=== PATIENT | male | born 1940 | race Caucasian/White ===

== ENCOUNTER 2017-04-02 08:55 | Emergency (ER) | payer MEDICARE ==
[2017-04-02 10:42] LABS: Hematocrit 31.8 % (42.0-52.0); Mean Platelet Volume 10.4 fL (7.4-10.4); Red Blood Cell (RBC) Count 3.38 mill/uL (4.70-6.10); White Blood Cell (WBC) Count 2.8 thou/uL (4.8-10.8)
[2017-04-02 10:51] LABS: ALT (SGPT) 10 U/L (8-55); AST (SGOT) 23 U/L (5-34); Alkaline Phosphatase 61 U/L (40-150); Anion Gap 13 mmol/L (10-20); BUN (Urea Nitrogen) 16 mg/dL (8.4-25.7); Bilirubin, Total 0.3 mg/dL (0.2-1.2); Calc. Creatinine Clearance 0 mL/min (70-130); Calcium 9.6 mg/dL (7.8-10.44); Carbon Dioxide 22 mmol/L (23-31); Chloride 105 mmol/L (98-107); Estimated GFR-MDRD 65; Globulin 2.1 g/dL (2.4-3.5); Protein, Total 5.4 g/dL (5.8-8.1)
--- NOTE | 2017-04-02 11:06 | CT ---
NONCONTRAST HEAD CT: HISTORY: Altered mental status. Symptoms x2 days. Lymphoma. COMPARISON: Pre and post contrast head CT from 03/02/2017. TECHNIQUE: A noncontrast head CT was performed in the axial plane. FINDINGS: Adequate aeration of the sinuses and mastoid air cells. Cavernous carotid atherosclerosis is noted. The calvarium is intact. No parenchymal hemorrhage. No extraaxial hematoma. No midline shift. Basilar cisterns are patent. Age appropriate brain volume. Cortical dumont white matter differential is preserved. Ventricles a nd sulci are patent and symmetric. Note is made of a hypodensity in the posterior fossa, unchanged. IMPRESSION: No acute intracranial process. No significant interval change. Given the patient's symptomatology and past medical history, better interrogation with MRI is recommended, presuming there are no contr aindications. POS: [facility]
[2017-04-02 12:32] LABS: Band 15 % (5-11); Elliptocytes SLIGHT = 2-5 cells (100X) (0-1/hpf); Neutrophil 43 % (42-75); Reactive Lymphocytes 1 % (0-10); Tear Drops SLIGHT = 2-5 cells (100X) (0-1/hpf)
== END 2017-04-02 12:48 | disposition home or self-care (01) ==
LOC: SCSER 08:55
DX: K03.2 Erosion of teeth (principal); K04.7 Periapical abscess without sinus; K05.10 Chronic gingivitis, plaque induced; D72.819 Decreased white blood cell count, unspecified; C85.90 Non-Hodgkin lymphoma, unspecified, unspecified site; K21.9 Gastro-esophageal reflux disease without esophagitis; F41.9 Anxiety disorder, unspecified; F32.9 Major depressive disorder, single episode, unspecified; I10 Essential (primary) hypertension; Z87.891 Personal history of nicotine dependence
CPT/HCPCS: 70450; 80053; 83605; 85025; 87040; 87077; 87149; 87186

== ENCOUNTER 2017-04-06 15:29 | Inpatient (IN) | payer MEDICARE ==
[2017-04-06 17:33] LABS: Hematocrit 33.1 % (42.0-52.0); Mean Platelet Volume 8.4 fL (7.4-10.4); Red Blood Cell (RBC) Count 3.39 mill/uL (4.70-6.10); White Blood Cell (WBC) Count 2.5 thou/uL (4.8-10.8)
[2017-04-06 17:41] LABS: ALT (SGPT) 9 U/L (8-55); AST (SGOT) 19 U/L (5-34); Alkaline Phosphatase 62 U/L (40-150); Anion Gap 12 mmol/L (10-20); BUN (Urea Nitrogen) 18 mg/dL (8.4-25.7); Bilirubin, Total 0.4 mg/dL (0.2-1.2); Calc. Creatinine Clearance 0 mL/min (70-130); Calcium 10.3 mg/dL (7.8-10.44); Carbon Dioxide 27 mmol/L (23-31); Chloride 102 mmol/L (98-107); Estimated GFR-MDRD 52; Globulin 2.5 g/dL (2.4-3.5); Protein, Total 6.3 g/dL (5.8-8.1)
[2017-04-06 17:51] LABS: Band 14 % (5-11); Metamyelocyte 2 % (0-0); Neutrophil 34 % (42-75); Ovalocytes SLIGHT = 2-5 cells (100X) (0-1/hpf); Polychromasia SLIGHT = 2-3 cells (100X) (0-2/hpf); Reactive Lymphocytes 15 % (0-10)
[2017-04-06] MEDS ORDERED: Ondansetron ODT 4 MG TAB SL PRN (21:44)
[2017-04-06] MEDS ORDERED: Ondansetron HCl/PF 4 MG/2 ML Vial IVP PRN (21:44)
[2017-04-06] MEDS ORDERED: Acetaminophen 325 MG TAB PO PRN (21:44)
[2017-04-07] MEDS: Sodium Chloride 0.9% 1,000 ML IV SCH ×2 (00:30→00:55)
[2017-04-07] MEDS: Clindamycin/D5W 600 MG in Premix Bag 1 BAG IVPB SCH ×2 (00:30→05:19)
[2017-04-07] MEDS ORDERED: GLYCERIN EA EYE PRN (07:52)
[2017-04-07] MEDS ORDERED: PEG EA EYE PRN (07:52)
[2017-04-07] MEDS ORDERED: HYPROMELLOSE EA EYE PRN (07:52)
[2017-04-07] MEDS ORDERED: Artificial Tears 18 DROP/0.9 ML EA EYE PRN (08:19)
--- NOTE | 2017-04-07 08:20 | HP ---
CHIEF COMPLAINT: Weakness, failure to thrive, recent dental infection. HISTORY OF PRESENT ILLNESS: This is a 76-year-old gentleman with a history of mantle cell lymphoma, followed by Oncology, currently on chemotherapy, who presents to the emergency department with wors ening weakness and failure to thrive. The patient was recently diagnosed with a dental abscess. He was seen here in the emergency department on 04/02/2017 for increased confusion. He was found to h ave an infection in his mouth. He was started on p.o. clindamycin and outpatient arrangement with a dentist was made, but he has not been able to see them yet. The patient continued to worsen as far as his ability to function at home. He was having increased weakness and inability to get around a t home and presented back to the emergency department. He is now being admitted for IV antibiotics and further evaluation. Of note, from that emergency department visit on 04/02/2017 blood cultures were done which have been growing Staph epidermidis 2 out of 2 blood cultures were positive. PAST MEDICAL HISTORY: Mantle cell lymphoma with chemo and radiation, coronary artery disease, gastr oesophageal reflux disease, anxiety, blindness, hypertension, chronic pain, hyperlipidemia, chronic anemia. PAST SURGICAL HISTORY: Four-vessel coronary bypass graft, right shoulder surgery, porcine cardiac a ortic valve replacement. MEDICATIONS: Xanax 0.25 mg b.i.d. p.r.n., aspirin 81 mg daily, Imdur 30 mg daily, melatonin 3 mg at bedtime, metoprolol 25 mg b.i.d., Protonix 40 mg b.i.d., sertraline 25 mg daily, Ambien 5 mg p.r.n. sleep, Tramadol 50 mg q.8 h. p.r.n. pain. ALLERGIES: No known drug allergies. SOCIAL HISTORY: The patient has 2 children, he is from [place], but recently moved to [place] to be closer to family. No smoking, no alcohol. REVIEW OF SYSTEMS: As per the history of present illness. GENERAL: He denies any recent fevers. Positive for weakness. HEENT: Positive for blindness, no recent congestion. CARDIAC: No current chest pain, shortness of breath or palpitations. PULMONARY: Denies cough or hemoptysis. GASTROINTESTINAL: Denies nausea, vomiting, abdominal pain, melena or hematochezia. GENITOURINARY: Denies dysuria or hematuria. NEUROLOGIC: Positive weakness. PSYCHIATRIC: History of anxiety and depression. PHYSICAL EXAMINATION: VITAL SIGNS: Temperature 98.6, pulse 74 and regular, respirations 18, blood pressure 162/89, pulse ox of 98% on room air. GENERAL: He is awake and alert, in no acute distress. He appears well, complaining about needing s omeone to feed him. Mucosa is moist. NECK: Supple. HEART: Regular rate and rhythm with a 3/6 systolic ejection murmur. LUNGS: Clear bilaterally. ABDOMEN: Soft, nontender, nondistended. No hepatosplenomegaly. EXTREMITIES: No clubbing, cyanosis or edema. 2+ peripheral pulses bilaterally. LABORATORY DATA: White blood cell count 2.5, hemoglobin and hematocrit 10.8 and 33.1, platelets of 144. He does have a left shift with 14% bands, 34% neutrophils, 11% lymphocytes. Sodium 137, potas sium 4.2, chloride 102, C02 27, BUN and creatinine 18 and 1.34 with a GFR of 52. Liver enzymes were normal. Brain CT from 04/02/2017 revealed no acute process. ASSESSMENT AND PLAN: 1. This is a 76-year-old gentleman with mantle cell lymphoma, currently receiving chemotherapy, fol lowed by Dr. Irving. Now with oral abscess with bacteremia Staph epidermidis. Plan; agree with samara ontinuing IV clindamycin as he is clinically improving, consider evaluation from Dr. Velasquez if he wor sens. 2. Mantle cell lymphoma with neurologic involvement. We will notify Oncology of the patient's admi ssion and further recommendations per them. 3. History of gastrointestinal bleed. Continue to hold Eliquis. 4. Coronary artery disease, stable. Continue aspirin. 5. Hypertension. Continue antihypertensives and monitor closely. 6. Valvular heart disease. We will consider a transesophageal echocardiogram if his symptoms decli ne and he develops further fever.
[2017-04-07] MEDS: Famotidine 20 MG TAB PO SCH ×2 (08:54→20:51)
[2017-04-07] MEDS: Aspirin 81 mg Enteric Coated Tablet PO SCH (08:54)
[2017-04-07] MEDS ORDERED: FLU VACC TS2017-18 (>65YR) 0.5 ML SYRINGE IM ONE (09:00)
[2017-04-07] MEDS: traMADol HCl 50 MG TAB PO PRN (12:49)
[2017-04-07] MEDS: Melatonin 3 MG TAB PO PRN (20:51)
[2017-04-07] MEDS: Atorvastatin Calcium 20 MG TAB PO SCH (20:51)
[2017-04-08 06:18] LABS: ALT (SGPT) 9 U/L (8-55); AST (SGOT) 17 U/L (5-34); Alkaline Phosphatase 58 U/L (40-150); Anion Gap 10 mmol/L (10-20); BUN (Urea Nitrogen) 11 mg/dL (8.4-25.7); Bilirubin, Total 0.6 mg/dL (0.2-1.2); Calc. Creatinine Clearance 56 mL/min (70-130); Calcium 10.4 mg/dL (7.8-10.44); Carbon Dioxide 26 mmol/L (23-31); Chloride 104 mmol/L (98-107); Estimated GFR-MDRD 74; Globulin 2.4 g/dL (2.4-3.5); Protein, Total 6.3 g/dL (5.8-8.1)
[2017-04-08 06:58] LABS: Band 12 % (5-11); Hematocrit 35.6 % (42.0-52.0); Mean Platelet Volume 8.3 fL (7.4-10.4); Metamyelocyte 1 % (0-0); Neutrophil 40 % (42-75); Reactive Lymphocytes 2 % (0-10); Red Blood Cell (RBC) Count 3.68 mill/uL (4.70-6.10); White Blood Cell (WBC) Count 2.2 thou/uL (4.8-10.8)
[2017-04-08] MEDS: Famotidine 20 MG TAB PO SCH ×2 (07:45→21:25)
[2017-04-08] MEDS: Aspirin 81 mg Enteric Coated Tablet PO SCH (07:45)
[2017-04-08] MEDS ORDERED: cloNIDine 0.1 MG TAB PO PRN (07:47)
--- NOTE | 2017-04-08 08:08 | PRG ---
DATE OF SERVICE: 04/08/2017 SUBJECTIVE: The patient continues to improve. He was up ambulating in his room with assistance. Zain hays states that he is feeling more like his baseline and not as confused. He denies any tooth p ain. Denies chest pain, shortness of breath or palpitations. No fevers or chills. Blood pressure has been elevated. OBJECTIVE: VITAL SIGNS: Temperature 97.7, T-max of 98.8, pulse of 61, respirations 16, pulse ox is 99%, blood pressure 177/83. GENERAL: He is awake and alert, in no acute distress. Speech is clear. NECK: Supple. HEENT: Mucosa is moist. HEART: Regular rate and rhythm with a 3/6 systolic ejection murmur. LUNGS: Clear bilaterally. ABDOMEN: Soft. EXTREMITIES: With no edema. No calf tenderness. LABORATORY DATA: Sodium 136, potassium 3.7, chloride 104, CO2 26, BUN and creatinine 11 and 0.98. Serum glucose of 89. Liver enzymes are normal. White blood cell count 2.2, hemoglobin and hematocr it 11.8 and 35.6, platelets of 140. He continues to have a bandemia with 12% bands. ASSESSMENT AND PLAN: 1. This is a 76-year-old gentleman with a history of mantle cell lymphoma on chemotherapy, now with Staph epidermidis bacteremia, possibly secondary to oral abscess. We will continue IV clindamycin. Await Dr. Velasquez's evaluation for duration of antibiotics, possibly needing a PICC line if long-ter m. 2. Mantle cell lymphoma with neurologic involvement. Oncology to make any further recommendations. 3. Coronary artery disease is stable. 4. Valvular heart disease. We will check a transthoracic echocardiogram to evaluate the status of his valve. DISPOSITION: We will obtain a walking consult and will consult rehab for possible short term placem ent as he is home alone for a time.
[2017-04-08] MEDS: Atorvastatin Calcium 20 MG TAB PO SCH (21:25)
[2017-04-08] MEDS: Melatonin 3 MG TAB PO PRN (21:26)
[2017-04-08] MEDS: ALPRAZolam 0.25 MG TAB PO PRN (21:26)
--- NOTE | 2017-04-08 22:33 | CON ---
DATE OF CONSULTATION: 04/08/2017 REASON FOR CONSULTATION: Mantle cell lymphoma. HISTORY OF PRESENT ILLNESS: Mr. 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 He presented to the emergency ro with weakness and failure to thrive. He was recently diagnosed with a dental abscess and has bee n on oral clindamycin. He was admitted for IV antibiotics and further evaluation. The patient was diagnosed with mantle cell lymphoma in 2011. He had massive splenomegaly, intra-abdominal adenopath y and upper GI complaints. He had bone marrow and vomit at the time of diagnosis. He was treated w ith chemotherapy and had a relapse in 2015. He then was treated with the same regimen and was in [facility] until 09/2016 when he presented with headaches and abrupt loss of vision. He was found to h ave [employer] involvement. He had a retro-orbital mass. He was treated with intrathecal chemotherapy and radiation to the retro-orbital mass. Imbruvica was initiated in January. He is doing well with thi s regimen, tolerated it well. He had no neutropenia or significant side effects. The patient has h ad chronic headaches, dizziness and episodes of confusion, which preceded Imbruvica. Imaging in ly February showed no evidence of lymphoma. While in the hospital, the patient has been given IV a ntibiotics and Dr. Velasquez has been asked to see the patient. PAST MEDICAL HISTORY: 1. Mantle cell lymphoma with [employer] involvement. 2. Coronary artery disease. 3. Atrial fibrillation. 4. Renal insufficiency. PAST SURGICAL HISTORY: 1. Coronary artery bypass grafting. 2. Transesophageal echo. 3. Aortic valve replacement. 4. Rotator cuff repair. 5. EGD. ALLERGIES: No known drug allergies. HOME MEDICATIONS: 1. Xanax 0.25 mg p.o. t.i.d. 2. Aspirin 81 mg daily. 3. Lipitor 20 mg daily. 4. Pepcid 20 mg b.i.d. 5. Imbruvica 140 mg 4 tablets daily. 6. Imdur 30 mg daily. 7. Toprol XL 20 mg b.i.d. 8. Protonix 40 mg daily. 9. Zoloft 25 mg daily. 10. Tizanidine 4 mg b.i.d. p.r.n. 11. Tramadol p.r.n. FAMILY HISTORY: His daughter had pancreatic cancer. Mother had hypertension. SOCIAL HISTORY: , has 2 children. He moved to [place] to be close to his child. REVIEW OF SYSTEMS: A 12 point review of systems is negative except for weakness and headaches. PHYSICAL EXAMINATION: VITAL SIGNS: Temperature is 98.0, pulse is 72, respiratory rate 20, blood pressure is 177/83, he is 97% on room air. GENERAL: Well-developed, well-nourished male in no acute distress. HEENT: Normocephalic and atraumatic. The patient is blind. There are no oral lesions. NECK: Supple. CARDIOVASCULAR: Regular rate and rhythm. LUNGS: Clear. ABDOMEN: Soft and nontender. Bowel sounds are positive. EXTREMITIES: No clubbing, cyanosis or edema. SKIN: No rash. HEMATOLOGIC: No petechia or purpura. NEUROLOGICAL: Nonfocal. LYMPH: There is no palpable adenopathy. PERTINENT LABORATORY DATA: Current WBCs are 2.2, hemoglobin 11.8, hematocrit 35.6, platelet count 1 40,000, 40% neutrophils, 12% bands, and 26 % lymphocytes. Sodium is 136, potassium 3.7, chloride 10 4, CO2 of 26, BUN is 11 and creatinine 0.98. Calcium is 10.4, total bilirubin is 0.6, AST is 17, AL T is 9 and alkaline phosphatase is 58. Serum total protein is 6.3, albumin 3.9 and globulin 2.4. ASSESSMENT AND PLAN: 1. Failure to thrive. 2. Mantle cell lymphoma on Ibrance. 3. Possible dental abscess. DISCUSSION: The patient has continue to do well with Ibrance with minimal side effects. His mantle cell has been in remission. We would continue the same dose of 560 mg daily and follow up with Dr. Irving in May. We will follow his hospital course remotely.
[2017-04-09 06:29] LABS: ALT (SGPT) 7 U/L (8-55); AST (SGOT) 16 U/L (5-34); Alkaline Phosphatase 58 U/L (40-150); Anion Gap 11 mmol/L (10-20); BUN (Urea Nitrogen) 14 mg/dL (8.4-25.7); Bilirubin, Total 0.7 mg/dL (0.2-1.2); Calc. Creatinine Clearance 46 mL/min (70-130); Calcium 11.2 mg/dL (7.8-10.44); Carbon Dioxide 29 mmol/L (23-31); Chloride 104 mmol/L (98-107); Estimated GFR-MDRD 59; Globulin 2.5 g/dL (2.4-3.5); Protein, Total 6.6 g/dL (5.8-8.1)
[2017-04-09 06:56] LABS: Band 7 % (5-11); Hematocrit 35.9 % (42.0-52.0); Mean Platelet Volume 8.3 fL (7.4-10.4); Neutrophil 32 % (42-75); Red Blood Cell (RBC) Count 3.74 mill/uL (4.70-6.10); White Blood Cell (WBC) Count 2.5 thou/uL (4.8-10.8)
[2017-04-09] MEDS: Famotidine 20 MG TAB PO SCH ×2 (08:28→20:14)
[2017-04-09] MEDS: Aspirin 81 mg Enteric Coated Tablet PO SCH (08:28)
--- NOTE | 2017-04-09 08:29 | PRG ---
DATE OF SERVICE: 04/09/2018 SUBJECTIVE: The patient is improving. He is ambulating with assistance. He feels weak, but contin ues to be confused at times. He denies any acute pain. Denies fevers, chills, nausea, vomiting. D enies chest pain, shortness of breath. OBJECTIVE: VITAL SIGNS: Temperature 97.4, pulse is 70, respirations 16, blood pressure 139/70, pulse ox 97% on room air. GENERAL: He is awake and alert. Speech is clear. He mumbles at times and appears to be confused t his morning. HEENT: Mucosa is moist. NECK: Supple. HEART: Regular rate and rhythm with a 3/6 systolic ejection murmur. LUNGS: Clear. ABDOMEN: Soft. EXTREMITIES: With no edema, no calf tenderness. LABORATORY DATA: White blood cell count 2.5, hemoglobin and hematocrit 11.7 and 35.9, bandemia down to 7%. Sodium 140, potassium 3.7, chloride 104, CO2 29, BUN and creatinine 14 and 1.2, serum gluco se of 90, calcium was elevated at 11.2. Again, blood cultures positive for Staph epidermidis x2, se nsitive to clindamycin. Echocardiogram revealed moderate aortic stenosis, prosthetic aortic valve in place. No vegetations seen on transthoracic echocardiogram. ASSESSMENT AND PLAN: 1. This is a 76-year-old gentleman with a history of stage IV mantle cell lymphoma on Imbruvica, no w with Staph epidermidis bacteremia, possibly secondary to an oral abscess. Continuing IV clindamyc in. Awaiting Dr. Velasquez's evaluation. 2. Placement: Awaiting rehab placement due to failure to thrive, weakness and possible need for lo ng-term IV antibiotics. 3. Coronary artery disease is stable. 4. Valvular heart disease, stable echocardiogram. We will check a ESPERANZA if Dr. Velasquez thinks necessar y. 5. Mantle cell lymphoma. We will continue medications. Appreciate oncology evaluation. 6. Await long-term placement.
[2017-04-09] MEDS: Saccharomyces boulardii 250 MG CAP PO SCH (08:44)
[2017-04-09 09:44] LABS: Prothrombin Time 20.8 SEC (12.0-14.7)
[2017-04-09] MEDS: Clindamycin/D5W 600 MG in Premix Bag 1 BAG IVPB SCH ×2 (11:13→17:09)
--- NOTE | 2017-04-09 11:14 | SPC ---
ULTRASOUND GUIDED LEFT UPPER EXTREMITY PICC LINE PLACEMENT DATE: 04/09/2017 HISTORY: Bacteremia. The patient needs long-term IV antibiotics. FLUOROSCOPY: Total fluoroscopy time is 0.2 minutes with total dose of 760 mGy*cm2. TECHNIQUE: After informed consent was obtained, the patient was placed on the angiography table in the supine p osition. The left upper extremity was meticulously prepped and draped in the usual sterile fashion. An appropriate access site was determined with ultrasound guidance. Skin and subcutaneous tissues were infiltrated with buffered 1% lidocaine for local anesthesia at th e intended puncture site. The left brachial vein was accessed utilizing micropuncture technique and concurrent real-time ultra sound guidance. A 5-Gambian peel-away sheath was placed. The guidewire was advanced into the IVC to confirm placement in the venous system. The catheter was then measured and cut to the appropriate length. Catheter was placed over the guidewire with the tip position overlying the distal SVC. Guidewire an d peel-away sheath were removed. The catheter was accessed and aspirated/flushed easily. The cipriano ter was secured to the skin utilizing a Stat-Lock device. A dry sterile dressing was placed. The p atient tolerated the procedure well without immediate complication. FINDINGS: Technically successful placement of a single-lumen 5-Gambian 40 cm PICC line via the left brachial ve in. Tip of the catheter overlies the distal SVC. Final spot fluoroscopic image of catheter placeme nt is obtained. IMPRESSION: Technically successful left upper extremity PICC line placement. POS: [facility]
[2017-04-09] MEDS: IBRUTINIB 140 MG PO SCH (17:12)
--- NOTE | 2017-04-09 18:42 | CON ---
DATE OF CONSULTATION: 04/09/2017 REASON FOR CONSULTATION: Bacteremia. HISTORY OF PRESENT ILLNESS: A 76-year-old who has a history of mantle cell lymphoma diagnosed and treated for the most part in [place]. The patient had radiation therapy and chemotherapy and has been placed on Imbruvica orally. Reportedly, he had dysfunction or fracture of the port that had been inserted in the right subclavian location in [place] and that has not been used since. The patient had been placed in a usp unit few weeks ago and developed some ulceration and other types of injuries in the scalp and facial area according to his daughter. The patient was transferred over here because of concerns with a management in [place]. Here he has been living with his daughter and developed dental pain that was seen at the emergency room and given a diagnosis of dental abscess plus a prescription for clindamycin and recommendation to visit with the dentist. The visit has been scheduled a few weeks from now, but patient developed weakness and decreased oral intake. The patient was admitted and 2/2 sets of blood cultures yielded Staph epidermides and we were asked to evaluate. The patient is currently awake, in no distress. Denies any headaches. 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 No sore throat, odynophagia, dysphagia. Toothache has improved. No back pain, no cough or sputum production or dyspnea. He has some moderate abdominal pain. No genitourinary symptoms. No diarrhea. No bleeding. No joint symptoms or neurological symptoms. 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 PAST SURGICAL HISTORY: Bypass graft surgery; right shoulder surgery; aortic valve replacement, porcine. CURRENT MEDICATIONS: Xanax, Lipitor, clindamycin, Catapres, Pepcid, Imdur, melatonin, Imbruvica, Florastor, Zoloft and Ultram. ALLERGIES: None. SOCIAL HISTORY: Living with one of his daughters, disabled. Never a smoker. PHYSICAL EXAMINATION: VITAL SIGNS: With a T-max 98.6, blood pressure 119/74, pulse 68, respirations 15, O2 sat 97%. SKIN: Shows the port with no erythema, no areas of skin lesions or other type of breakdown, no petechiae or purpura. No lymphadenopathy. HEENT: Sclerae are white. Pupils are 2 mm, but not reactive. No light perception. Nasal and oral cavity, not remarkable except for marked gum resorption, dental decay, numerous missing teeth. NECK: Supple, no jugular venous distention or carotid bruits. LUNGS: With symmetric clear breath sounds. HEART: S1, S2 with regular rate. No S3, S4. Markedly diminished heart sounds. ABDOMEN: Soft. Not distended or tender. No ascites. No bladder distention. No genital abnormalities. EXTREMITIES: No joint inflammatory activity. Pulses are faintly palpable in dorsalis pedis. NEUROLOGIC: Plantar responses are flexor. No clonus. He is awake. He recognizes his daughter, he is disoriented. LABORATORY DATA: White cell count is 2.5, hemoglobin 11.7, MCV 96, platelet is 148, 32% neutrophils, 7% bands, it was at 14% on arrival, lymphocytes 33%, 25% monocytes. INR 1.7. Chemistry otherwise normal. Creatinine has improved from 1.34 to 1.20 and blood cultures with Staph epidermides 2/2 sets with the first set was drawn at 10:15, the second set is labeled and has been drawn at the same time. ASSESSMENT: 1. History of mantle cell lymphoma of the port, having finished IV chemo and radiation therapy, now on maintenance Imbruvica. 2. General malaise and weakness. 3. Dental abscess, periodontitis. 4. Staph epidermides bacteremia, 2/2 sets. 5. Dysfunction of port. DISCUSSION: Differential diagnosis includes a contamination of the sample versus a true bacteremia, possibly related to device colonization. We will repeat two sets of blood cultures. If they remain negative, then manage as contamination of sample. If they turn positive for the same organism, then consider removal of the port. The port will have to be removed anyways in view of the dysfunction of this device. The presence of a prosthetic valve complicates things a little bit. The echocardiogram did not show any obvious abnormality and transthoracic echos are notoriously not very sensitive in detecting vegetations, particularly in prostatic valves. May have to order a ESPERANZA depending on the results of 2 sets that have been ordered today. I would advise keeping patient in the hospital until we clarify this issue. [facility]
[2017-04-09] MEDS: Melatonin 3 MG TAB PO PRN (20:14)
[2017-04-09] MEDS: Atorvastatin Calcium 20 MG TAB PO SCH (20:14)
[2017-04-10] MEDS: Clindamycin/D5W 600 MG in Premix Bag 1 BAG IVPB SCH ×4 (00:06→17:38)
[2017-04-10 06:09] LABS: Band 8 % (5-11); Hematocrit 35.1 % (42.0-52.0); Mean Platelet Volume 8.9 fL (7.4-10.4); Neutrophil 51 % (42-75); Red Blood Cell (RBC) Count 3.62 mill/uL (4.70-6.10); White Blood Cell (WBC) Count 2.6 thou/uL (4.8-10.8)
[2017-04-10] MEDS: Saccharomyces boulardii 250 MG CAP PO SCH (07:42)
[2017-04-10] MEDS: Aspirin 81 mg Enteric Coated Tablet PO SCH (07:42)
[2017-04-10] MEDS: Famotidine 20 MG TAB PO SCH ×2 (07:43→22:14)
--- NOTE | 2017-04-10 14:49 | PRG ---
DATE OF SERVICE: 04/10/2017 SUBJECTIVE: No events of yesterday were noted. Dr. Velasquez felt like it would be best to repeat bloo d cultures prior to sending him to rehab and the patient's discharge was held. The patient continue s to do well. He is ambulating with a walking program. Daughter states that he continues to feel w eak and confused at times, but much better. He denies pain. Denies fevers, chills, nausea, or vomi ting. Denies chest pain, shortness of breath. He is tolerating antibiotics. OBJECTIVE: VITAL SIGNS: Temperature 96.4, pulse of 74, respirations 16, blood pressure 160/95, pulse ox of 96% on room air. GENERAL: He is awake and alert, in no acute distress. Speech is clear. NECK: Supple. HEART: Regular rate and rhythm. LUNGS: Clear. ABDOMEN: Soft. EXTREMITIES: With no edema. LABORATORY DATA: Blood cultures repeat are pending. White blood cell count 2600, hemoglobin and he matocrit 11.8 and 35.1, and platelets of 137. ASSESSMENT AND PLAN: 1. This is a 76-year-old gentleman with mantle cell lymphoma, now with continuing on Imbruvica, adm itted for weakness, mental status change and positive blood cultures. He is on day #4 of IV clindam ycin for Staphylococcus epidermidis. 2. Bacteremia. We will continue clindamycin at this time. Again, for Staph epidermidis, awaiting repeat blood cultures, possible transesophageal echocardiography and removal of MediPort per Dr. Mil steel. 3. Mantle cell lymphoma. We will continue Imbruvica. 4. Dysfunction of port. I will consult Surgery for port removal if it is okay with Dr. Velasquez.
[2017-04-10] MEDS: IBRUTINIB 140 MG PO SCH (17:39)
[2017-04-10] MEDS: Atorvastatin Calcium 20 MG TAB PO SCH (22:14)
[2017-04-10] MEDS: ALPRAZolam 0.25 MG TAB PO PRN (22:14)
[2017-04-11] MEDS: Clindamycin/D5W 600 MG in Premix Bag 1 BAG IVPB SCH ×5 (00:52→23:34)
[2017-04-11] MEDS: Aspirin 81 mg Enteric Coated Tablet PO SCH (08:10)
[2017-04-11] MEDS: Saccharomyces boulardii 250 MG CAP PO SCH (08:10)
[2017-04-11] MEDS: Famotidine 20 MG TAB PO SCH ×2 (08:10→20:42)
[2017-04-11 11:19] LABS: Hematocrit 34.6 % (42.0-52.0); Mean Platelet Volume 8.7 fL (7.4-10.4); White Blood Cell (WBC) Count 2.3 thou/uL (4.8-10.8)
[2017-04-11 11:28] LABS: Band 15 % (5-11); Neutrophil 30 % (42-75); Ovalocytes SLIGHT = 2-5 cells (100X) (0-1/hpf); Polychromasia SLIGHT = 2-3 cells (100X) (0-2/hpf); Reactive Lymphocytes 5 % (0-10); Tear Drops SLIGHT = 2-5 cells (100X) (0-1/hpf); Toxic Granulation SLIGHT; Vacuoles SLIGHT
--- NOTE | 2017-04-11 12:23 | PRG ---
DATE OF SERVICE: 04/10/2017 SUBJECTIVE: The patient denies pain. He appears to be comfortable. He states that he is walking with assistance. He does state that he feels more weak. Grandson is in the room with him, states that he continues to have more confusion. Today, he is more confused and not sure where he is. Curtis says this has been happening more and more frequently over the past few weeks. He appears to be tolerating the antibiotics. He is moving his bowels. OBJECTIVE: VITAL SIGNS: Temperature 97.6, T-max of 98.2, pulse of 65, respirations 18, blood pressure 143/86 and pulse ox is 99% on room air. GENERAL: He is awake and alert. Speech is clear. He does appear to be confused. He is oriented to person. HEART: Regular rate and rhythm. LUNGS: Clear. Chest wall with no sign of infection. ABDOMEN: Soft. EXTREMITIES: With no edema. LABORATORY DATA: Most recent blood cultures are pending. ASSESSMENT AND PLAN: This is a 76-year-old with mantle cell lymphoma with neurologic involvement, continuing on imbruvica per Oncology. He was admitted for positive blood cultures on day #5 of IV clindamycin for positive blood cultures with Staph epidermidis. 1. Bacteremia. We will continue clindamycin, awaiting for repeat blood cultures. A 48-hour culture will be this afternoon about 1:30. If positive, again I will proceed with a transesophageal echocardiography as well as removal of the port. 2. Mantle cell lymphoma. We will continue imbruvica. 3. Confusion. I will check MRI of the brain and check a UA and CBC as well. MARBELLA
--- NOTE | 2017-04-11 12:55 | MRI ---
BRAIN MRI WITH AND WITHOUT CONTRAST: Date: 04/11/17 COMPARISON: None. HISTORY: Mental status changes, history of lymphoma. TECHNIQUE: Multiplanar, multisequence MR imaging of the brain obtained with and without contrast. FINDINGS: There is a tiny focus of increased signal intensity on the diffusion-weighted sequence within the le ft parietal lobe on image 49, which measures approximately 4.0 mm. There is a focus of increased T2 and FLAIR signal in this region. This is felt to most likely represent T2 shine-through. Punctate ar ea of infarction is much less likely. The diffusion-weighted imaging appears grossly unremarkable ot herwise. There are a few scattered subcentimeter foci of increased T2 and FLAIR signal within the periventric ular, deep, and subcortical white matter bilaterally, suggesting areas of small vessel disease. There are a few opacified mastoid air cells bilaterally, left greater than right. Lobulated T2 hyperintense lesion in posterior fossa noted suggesting an arachnoid cyst. Axial gradient echo imaging demonstrates a subcentimeter focus of blooming artifact in the deep whit e matter of the left frontal lobe suggesting an area of calcification and/or remote microhemorrhage. Arterial flow-voids at axial level of skull base appear unremarkable on T2 weighted imaging. Postcontrast imaging demonstrates no abnormal enhancement within the brain parenchyma. IMPRESSION: Punctate focus of increased signal on the diffusion-weighted sequence within right parietal lobe is favored to represent T2 shine-through as detailed above. No acute findings are appreciated otherwise . POS: [facility]
[2017-04-11] MEDS: IBRUTINIB 140 MG PO SCH (17:42)
[2017-04-11 19:39] LABS: Bilirubin Negative (Negative); Blood, Urine Negative (Negative); Glucose, Urine (Dipstick) Negative (Negative); Ketone, Urine Negative (Negative); Nitrite Negative (Negative); Protein, Urine (Dipstick) Negative (Neg-Trace); Urobilinogen 0.2 mg/dL (0.2-1.0)
[2017-04-11] MEDS: Atorvastatin Calcium 20 MG TAB PO SCH (20:41)
[2017-04-11] MEDS: Melatonin 3 MG TAB PO PRN (20:42)
[2017-04-11] MEDS: traMADol HCl 50 MG TAB PO PRN (20:42)
[2017-04-12] MEDS: Clindamycin/D5W 600 MG in Premix Bag 1 BAG IVPB SCH (05:45)
--- NOTE | 2017-04-12 08:27 | PRG ---
DATE OF SERVICE: 04/12/2017 SUBJECTIVE: The patient continues to feel well. He denies any complaints. He denies chest pain, s hortness of breath. Per nursing he has been transferring well and walking with a walking program. His appetite is good. He has good bowel movements. OBJECTIVE: VITAL SIGNS: Temperature 98.0, pulse of 73, respirations 16, blood pressure 137/84, pulse ox is 98% on room air. GENERAL: He is awake and alert, in no acute distress. Speech is clear. He appears less confused t sanchez, but he is alert and oriented to person and time. He states that he believes that he is in [facility], but of course he just moved to [place] a few months ago. HEENT: Mucosa is moist. NECK: Supple. HEART: Regular rate and rhythm. LUNGS: Clear. ABDOMEN: Soft. EXTREMITIES: With no edema. LABORATORY DATA: Blood cultures are negative over 48 hours. MRI of the brain revealed a small punc law foci consistent with a past micro hemorrhages areas of small vessel disease, but no other acute findings. ASSESSMENT AND PLAN: 1. 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 2. Bacteremia, now resolved after 6 days of IV clindamycin. If okay with Dr. Velasquez we will discon tinue antibiotics, discontinue PICC line and have a MediPort removed by surgery. 3. Mantle cell lymphoma. We will continue Imbruvica. 4. Mental status change, likely delirium, possibly dementia as well. MRI is stable. A UA and CBC were stable as well. 5. Disposition. Depending on Dr. Velasquez's opinion as far as a MediPort removal. We will plan for t juan to a short term rehab before he goes home.
[2017-04-12] MEDS: Aspirin 81 mg Enteric Coated Tablet PO SCH (10:49)
[2017-04-12] MEDS: Saccharomyces boulardii 250 MG CAP PO SCH (10:49)
[2017-04-12] MEDS: Famotidine 20 MG TAB PO SCH ×2 (10:49→20:04)
[2017-04-12] MEDS ORDERED: Lidocaine 1% w/Epinephrine 1:200K 30 ML VIAL FS SCH (14:30)
[2017-04-12] MEDS: IBRUTINIB 140 MG PO SCH (18:57)
[2017-04-12] MEDS: Atorvastatin Calcium 20 MG TAB PO SCH (20:04)
[2017-04-12] MEDS: ALPRAZolam 0.25 MG TAB PO PRN (20:06)
--- NOTE | 2017-04-12 22:26 | OP ---
DATE OF PROCEDURE: 04/12/2017 PREOPERATIVE DIAGNOSIS: Suspected infected right chest wall Port-A-Cath. PREOPERATIVE DIAGNOSES: Suspected infected right chest wall Port-A-Cath. PROCEDURE PERFORMED: Surgical excision of right chest wall Port-A-Cath. INDICATIONS FOR PROCEDURE: This is a 76-year-old man, who had right subclavian Port-A-Cath placed f or chemotherapy approximately 12 years ago. Chemotherapy has since been completed for his treatment . The patient was admitted with Staphylococcus bacteremia. I was asked to remove the Port-A-Cath as a suspected site of infection. DESCRIPTION OF PROCEDURE: Informed consent obtained from the patient's adult daughter. The patient was placed in supine position. The right chest wall including the Port-A-Cath site was sterilely p repped and draped in the usual fashion. The skin overlying the Port-A-Cath was liberally infiltrate d with 1% lidocaine with epinephrine. A transverse incision was made through the previous insertion scar using a 15 scalpel. The incision was carried through subcutaneous tissues by blunt dissection . The Port-A-Cath was grasped with a towel clamp and elevated. Adhering fiberoptic tissues were sh arply taken down using Metzenbaum scissors. The Port-A-Cath and the implanted catheter were explant ed as a unit passed off the operative field to microbiology. The site was inspected for good hemostasis. Deep tissues were approximated using interrupted suture s of 3-0 Vicryl. The skin incision was closed using a running stitch of 4-0 Monocryl suture in subc uticular fashion. Dermabond was applied over the incision. Note that pressure was held out in the catheter site until hemostasis was achieved. The patient jose l erated the procedure without any apparent complications and remains hemodynamically stable following completion of the procedure.
[2017-04-13 07:16] VITALS: BP 146/81; TEMP 98.6
[2017-04-13] MEDS: Aspirin 81 mg Enteric Coated Tablet PO SCH (08:29)
[2017-04-13] MEDS: Saccharomyces boulardii 250 MG CAP PO SCH (08:29)
[2017-04-13] MEDS: Famotidine 20 MG TAB PO SCH (08:29)
--- NOTE | 2017-04-13 08:31 | DIS ---
ADMISSION DIAGNOSES: Weakness, failure to thrive, bacteremia. DISCHARGE DIAGNOSES: Bacteremia, resolved. Mental status change. OTHER DIAGNOSES: Mantle cell lymphoma with neurologic involvement, history of GI bleed, coronary ar veronica disease, hypertension, valvular heart disease. CONSULTATIONS: Dr. Velasquez for Infectious Disease, Dr. Irving for Oncology, Dr. Sherwood for Surgery. PROCEDURES: IV antibiotics. Echocardiogram, brain MRI, removal of Port-A-Cath. PICC line placemen t. 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 It was thought that the Staph epidermidis in h is blood was originally from a dental abscess, then the suspicion of the Port-A-Cath being infected. The patient slowly improved with IV clindamycin. Arrangements were made for him to be transferred to rehab, but Dr. Velasquez felt like it would be best to repeat the blood cultures, remove the Port-A- Cath prior to discharge to rehab. His repeat blood cultures ended up being negative, the Port-A-Cat h was removed without difficulty by Dr. Sherwood. Yanely Luz for Oncology was following and agreed w ith continuing the Imbruvica during the hospitalization. MRI of the brain was done due to his menta l status change, not improving a whole lot, an MRI showed no active disease, but only small vessel i schemia. He was continued on his aspirin and other home medications and he was back to his baseline and stable for discharge to rehab before going home. DISCHARGE PHYSICAL EXAMINATION: VITAL SIGNS: Temperature 98.6, which was a T-max, pulse of 75, respirations 18, blood pressure 146/ 81, pulse ox 96% on room air. GENERAL: He is awake and alert. Speech is clear. NEUROLOGIC: He is an alert, oriented to person and time. HEART: Regular rate and rhythm. LUNGS: Lungs are clear. Chest wall with healing incision in the right upper chest wall. No sign o f infection. ABDOMEN: Soft. EXTREMITIES: No edema. DISCHARGE LABS: Again, repeat blood cultures were negative. DISCHARGE MEDICATIONS: Xanax 0.25 mg b.i.d. p.r.n., aspirin 81 mg, Lipitor 20 mg, Pepcid 20 mg b.i. d., Imdur 30 mg daily, melatonin 3 mg p.r.n. sleep, metoprolol 25 mg b.i.d., Imbruvica per Oncology, Florastor 250 mg daily, Zoloft 25 mg daily, tramadol 50 mg t.i.d. p.r.n. pain. FOLLOWUP INSTRUCTIONS: Patient to follow following the rehab in my office. Follow up with Dr. Karla bahena and follow up with Dr. Irving for Oncology.
--- NOTE | 2017-04-19 08:28 | PQF ---
CYNDI ADENYASMIN STARK DO [id number] -A- [id number] CLINICAL DOCUMENTATION CLARIFICATION FORM: POST DISCHARGE Addendum to original discharge summary date: ____ Late entry note date: __ DATE: 04/19/2017 Please exercise your independent, professional judgment in responding to the clarification form. Clinical indicators are provided on the bottom of this form for your review Please check appropriate box(s): Conflicting documentation was noted in the Medical Record, please clarify if patient is being treated/monitored for: [ x ] _staph epidermidis bacteremia__(Diagnosis #1) [ x ]___port a cath dysfunction___(Diagnosis #2) [ x ] Other diagnosis [ ] Unable to determine In addition, please specify: CLARIFY CAUSE OF BACTEREMIA Present on Admission (POA): [ x ] Yes [ ] No [ ] Unable to determine For continuity of documentation, please document condition throughout progress notes and discharge summary. Thank You. CLINICAL INDICATORS - SIGNS / SYMPTOMS/ LABS H&P - DENTAL ABSCESS WITH BACTEREMIA STAPH EPIDERMIDIS OP REPORT - SUSPECTED INFECTED RIGHT CHEST WALL PORT-A-CATH, PORT-A-CATH REMOVED PN 04/10 - BACTEREMIA STAPH EPIDERMIDIS, DYSFUNCTION OF PORT DS - BACTEREMIA RESOLVED, "THOUGHT THAT THE STAPH EPIDERMIDIS IN HIS BLOOD WAS ORIGINALLY FROM DENTAL ABSCESS, THEN THE SUSPICION OF THE PORT-A-CATH BEING INFECTED" RISK FACTORS MANTLE CELL LYMPHOMA HTN FAILURE TO THRIVE TREATMENT REMOVED PORT-A-CATH PICC PLACEMENT _ PHYSICIAN SIGNATURE DATE (This form is maintained as a part of the permanent medical record) 2014 [employer] All Rights Reserved Lorna Gilliam, CCS, WELFARE INTERVIEWER-H [email or web address] [phone] MARBELLA
== END 2017-04-13 13:00 | DRG 315 ==
LOC: ERS 15:29 → T4-A 20:52 → OBSVTOIN 04-07 07:51
PROVIDERS: ADMIT Family Medicine; ATTEND Family Medicine
PROC: 02HV33Z Insertion of Infusion Device into Superior Vena Cava, Percutaneous Approach (ICD-10-PCS; principal; 2017-04-09)
PROC: 0JPT0WZ Removal of Totally Implantable Vascular Access Device from Trunk Subcutaneous Tissue and Fascia, Open Approach (ICD-10-PCS; 2017-04-12)
DX: T80.211A Bloodstream infection due to central venous catheter, initial encounter (principal); C83.10 Mantle cell lymphoma, unspecified site; R78.81 Bacteremia; B95.7 Other staphylococcus as the cause of diseases classified elsewhere; Y83.8 Other surgical procedures as the cause of abnormal reaction of the patient, or of later complication, without mention of misadventure at the time of the procedure; I35.0 Nonrheumatic aortic (valve) stenosis; I10 Essential (primary) hypertension; Z95.1 Presence of aortocoronary bypass graft; Z95.2 Presence of prosthetic heart valve; Z79.82 Long term (current) use of aspirin; I25.10 Atherosclerotic heart disease of native coronary artery without angina pectoris; R62.7 Adult failure to thrive; H54.7 Unspecified visual loss; E78.5 Hyperlipidemia, unspecified; K21.9 Gastro-esophageal reflux disease without esophagitis; K05.30 Chronic periodontitis, unspecified; K04.7 Periapical abscess without sinus
CPT/HCPCS: 36415; 36569; 70553; 80053; 81003; 85007; 85025; 85027; 85610; 87040; 87070; 87071; 87077; 87186; 87205; 93005; 93306; A4216; C1751; G8978-GP-CK; G8979-GP-CJ; G8987-GO-CJ; G8988-GO-CI; J3490

== ENCOUNTER 2017-05-08 10:06 | Inpatient (IN) | payer MEDICARE ==
[2017-05-08 11:31] LABS: Band 34 % (5-11); Mean Platelet Volume 6.8 fL (7.4-10.4); Metamyelocyte 1 % (0-0); Neutrophil 28 % (42-75); Ovalocytes SLIGHT = 2-5 cells (100X) (0-1/hpf); Red Blood Cell (RBC) Count 3.33 mill/uL (4.70-6.10); Schistocytes SLIGHT = 2-5 cells (100X) (0-1/hpf); White Blood Cell (WBC) Count 1.7 thou/uL (4.8-10.8)
[2017-05-08 12:15] LABS: Lactic Acid - Sepsis 0.8 mmol/L (0.5-2.2)
[2017-05-08 12:23] LABS: Troponin I Less than 0.010 ng/mL (< 0.028)
--- NOTE | 2017-05-08 12:26 | RAD ---
SINGLE VIEW OF THE CHEST: COMPARISON: 04/16/17. HISTORY: Weakness. History of cancer. Altered mental status. FINDINGS: A single view of the chest shows a normal-size cardiomediastinal silhouette. The patient is status post CABG. There is no evidence of consolidation, mass, or pleural effusion. IMPRESSION: No evidence of acute cardiopulmonary disease. POS: [facility]
[2017-05-08 12:31] LABS: ALT (SGPT) 12 U/L (8-55); AST (SGOT) 17 U/L (5-34); Alkaline Phosphatase 57 U/L (40-150); Anion Gap 14 mmol/L (10-20); BUN (Urea Nitrogen) 17 mg/dL (8.4-25.7); Bilirubin, Total 0.4 mg/dL (0.2-1.2); CK (CPK) 26 U/L (30-200); Calc. Creatinine Clearance 0 mL/min (70-130); Calcium 10.4 mg/dL (7.8-10.44); Carbon Dioxide 20 mmol/L (23-31); Chloride 109 mmol/L (98-107); Estimated GFR-MDRD 56; Globulin 2.3 g/dL (2.4-3.5); Magnesium 2.2 mg/dL (1.6-2.6)
--- NOTE | 2017-05-08 12:55 | CT ---
CT OF THE BRAIN WITHOUT CONTRAST: COMPARISON: 04/02/17. HISTORY: Altered mental status. TECHNIQUE: Multiple contiguous axial images were obtained in a CT of the brain without contrast. FINDINGS: The brain is normal in morphology and attenuation without focal lesions or confluent areas of infarc tion. There is no evidence of hydrocephalus, intracranial hemorrhage, or extraaxial fluid collectio n. The calvarium and overlying soft tissues are unremarkable. The visualized paranasal sinuses and mas toid air cells are well aerated. IMPRESSION: No evidence of acute intracranial abnormality. POS: [facility]
[2017-05-08 13:27] LABS: Bilirubin Negative (Negative); Blood, Urine Negative (Negative); Glucose, Urine (Dipstick) Negative (Negative); Ketone, Urine Negative (Negative); Nitrite Negative (Negative); Protein, Urine (Dipstick) Negative (Neg-Trace); Urobilinogen 0.2 mg/dL (0.2-1.0)
[2017-05-08] MEDS ORDERED: Piperacillin/Tazobactam 3.375 GM, Admixture Fee 1 EACH in Sodium Chloride 0.9% 100 ML IVPB SCH (16:00)
[2017-05-08 17:03] VITALS: BMI 20.1
[2017-05-08] MEDS ORDERED: Acetaminophen 325 MG TAB PO PRN (17:14)
[2017-05-08] MEDS ORDERED: Ondansetron ODT 4 MG TAB SL PRN (17:14)
[2017-05-08] MEDS ORDERED: Ondansetron HCl/PF 4 MG/2 ML Vial IVP PRN (17:14)
[2017-05-08] MEDS ORDERED: Lactated Ringer's 1,000 ML IV SCH (17:15)
[2017-05-08] MEDS ORDERED: Artificial Tears 18 DROP/0.9 ML EA EYE PRN ×2 (18:15)
[2017-05-08] MEDS ORDERED: Lacri-Lube Opth Oint 3.5 GM TUBE EA EYE PRN (20:10)
--- NOTE | 2017-05-08 20:24 | HP ---
DATE OF ADMISSION: 05/08/2017 CHIEF COMPLAINT: Mental status change, confusion. 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 In the emergency department, he was found to have lower white blood cell count with a left shift an d concerned about recurrent infection due to his recent infection and now with worsening neutropenia . He has moments where he seems clear per the family, but overall has been more and more confused. He is now being admitted for further evaluation and treatment. PAST MEDICAL HISTORY: 1. Mantle cell lymphoma with chemo and radiation therapy. 2. History of coronary artery disease, status post 4-vessel coronary artery bypass graft with aorti c valve replacement. 3. Gastroesophageal reflux disease. 4. Anxiety. 5. Blindness. 6. Hypertension. 7. Chronic pain. 8. Hyperlipidemia. 9. Anemia. He was most recently on Imbruvica for chemotherapy. PAST SURGICAL HISTORY: Four-vessel coronary artery bypass graft, right shoulder surgery, porcine ca rdiac aortic valve replacement. MEDICATIONS: Include Xanax 0.25 mg b.i.d., aspirin 81 mg daily, Imdur 30 mg daily, melatonin p.r.n. sleep, Protonix 40 mg daily, sertraline 25 mg daily, Ambien p.r.n. sleep, tramadol p.r.n. pain, as recently discontinued on the Imbruvica for his lymphoma. ALLERGIES: No known drug allergies. SOCIAL HISTORY: He has two children. He is from [place], recently moved to [place] to be closer to family. Denies smoking, denies alcohol use. REVIEW OF SYSTEMS: As per the history of present illness, last admission in 03/2017 for bacteremia, but seemed to have improved after that. HEENT: Positive for blindness. No recent upper respirato ry symptoms. Denies hard of hearing. Cardiac: Denies chest pain, shortness of breath or palpitati ons. Pulmonary: Denies cough or hemoptysis or shortness of breath. Gastrointestinal: Denies naus ea, vomiting, abdominal pain, melena or hematochezia. Genitourinary: Denies dysuria or hematuria. Neurologic: He denies weakness. He did really well at the rehab unit. Psychiatric: History of a nxiety and depression, but appears to be stable at this time. PHYSICAL EXAMINATION: VITAL SIGNS: Temperature 98.6, pulse is 62, respirations 20, blood pressure 129/69, pulse ox is 96% on room air. GENERAL: He is awake and alert, in no acute distress. HEENT: He is blind. Mucosa is moist. NECK: Supple, no JVD, adenopathy or bruits. HEART: Regular rate and rhythm without murmurs. LUNGS: Clear bilaterally. ABDOMEN: With positive bowel sounds in all four quadrants. Soft, nontender, nondistended. EXTREMITIES: No clubbing, cyanosis or edema. No calf tenderness, 2+ peripheral pulses bilaterally. SKIN: Without any obvious skin breakdown. Feet are clear. BACK: Clear. No sacral decubiti. LABORATORY AND X-RAY FINDINGS: White blood cell count 1700, with 28% neutrophils, 34% bands, 26% ly mphocytes. Hemoglobin and hematocrit are 10.6 and 32.0 with macrocytic indices, platelets of 154,00 0. Sodium 139, potassium 4.2, chloride 109, CO2 of 20, BUN and creatinine are 17 and 1.25 with a GF R of 56, serum glucose of 109, alkaline phosphatase of 54. Ammonia of 13. Cardiac enzymes are nega tive with a troponin less than 0.01, albumin of 3.7. Urinalysis was clear. Blood cultures and urin e cultures are pending. Chest x-ray showed no active disease. Brain CT showed no active disease an d no change from his old CT. Of note, he had transthoracic echocardiogram done in 03/2017. ASSESSMENT AND PLAN: 1. This is a 76-year-old gentleman with stage IV mantle cell lymphoma, now with neutropenia, but no fever. His Imbruvica was discontinued at this time. We will continue IV vancomycin empirically as we look for the source of an infection. Await blood cultures and urine cultures. 2. We will consult Oncology for their assistance and follow CBC. 3. Recent bacteremia. We will consult Dr. Velasquez for his opinion as well and get a transesophageal echocardiogram. 4. Coronary artery disease. We will continue aspirin, Imdur, and Lipitor. 5. Anxiety. We will continue Xanax p.r.n. 6. Mental status change, possibly due to bacteremia even though there is no fever, possible progres mackenzie of his neurologic component of his mantle cell lymphoma, possible related to dementia.
[2017-05-08] MEDS: Atorvastatin Calcium 20 MG TAB PO SCH (20:54)
[2017-05-08] MEDS: ALPRAZolam 0.25 MG TAB PO SCH (20:54)
[2017-05-08] MEDS: Famotidine 20 MG TAB PO SCH (20:54)
[2017-05-08] MEDS ORDERED: Atorvastatin Calcium 20 MG TAB PO SCH (21:00)
[2017-05-09 03:59] LABS: ALT (SGPT) 11 U/L (8-55); AST (SGOT) 16 U/L (5-34); Alkaline Phosphatase 70 U/L (40-150); Anion Gap 14 mmol/L (10-20); BUN (Urea Nitrogen) 16 mg/dL (8.4-25.7); Bilirubin, Total 0.2 mg/dL (0.2-1.2); Calc. Creatinine Clearance 46 mL/min (70-130); Carbon Dioxide 20 mmol/L (23-31); Chloride 109 mmol/L (98-107); Estimated GFR-MDRD 60; Globulin 2.2 g/dL (2.4-3.5); Protein, Total 5.8 g/dL (5.8-8.1)
[2017-05-09 05:05] LABS: Hematocrit 30.9 % (42.0-52.0); Red Blood Cell (RBC) Count 3.24 mill/uL (4.70-6.10); White Blood Cell (WBC) Count 1.5 thou/uL (4.8-10.8)
[2017-05-09 05:13] LABS: Band 11 % (5-11); Neutrophil 34 % (42-75); Reactive Lymphocytes 1 % (0-10)
[2017-05-09] MEDS ORDERED: Vancomycin HCl 1 GM in Premix Bag 1 BAG IVPB SCH (07:00)
[2017-05-09] MEDS: Aspirin 81 mg Enteric Coated Tablet PO SCH (08:35)
[2017-05-09] MEDS: Famotidine 20 MG TAB PO SCH ×2 (08:36→22:20)
--- NOTE | 2017-05-09 17:29 | CON ---
DATE OF CONSULTATION: 05/09/2017 REASON FOR CONSULTATION: Change in mental status. HISTORY OF PRESENT ILLNESS: A 76-year-old whom I had seen recently in March when he presented wit h a history of mantle cell lymphoma diagnosed and treated. For the most part in [place] with radia tion and chemotherapy and then chronic Imbruvica. Patient had a port, which was not working anymore and then eventually was brought to this area by his family members because of concerns with his car e in [place]. Here, patient had pain in one of his teeth. Dental abscess was diagnosed and he was treated with clindamycin, then subsequently developed anorexia and was admitted with generalized we akness and anorexia. A 2/2 sets of blood cultures yielded Staph epidermides. The port was removed after the third set was positive. The patient was treated with vancomycin for a week and released. Now, he is readmitted with worsening confusional state. He had moderate neutropenia on admission. No headaches. Patient is chronically blind, probably from the treatment to his lymphoma and no sor e throat or toothache. No back pain, no dyspnea or cough. No chest pain. No abdominal pain or fanta rrhea. No genitourinary symptoms. No joint symptoms. PAST MEDICAL HISTORY: Mantle cell lymphoma treated with chemoradiation therapy and Imbruvica. Imbr uvica has been discontinued. Port insertion and removal recently. Coronary artery disease, GERD, b lindness due to involvement of optic nerve by mantle cell lymphoma, hypertension, hyperlipidemia and also Staph epidermidis bacteremia secondary to colonization of the port, which has been removed. PAST SURGICAL HISTORY: Bypass graft surgery, right shoulder surgery and aortic valve replacement wi th porcine valve. MEDICATIONS: Currently receiving Xanax, aspirin, Imdur, melatonin, Protonix, Zoloft, Ambien, tramad ol and Imbruvica has been discontinued. ALLERGIES: None. SOCIAL HISTORY: Moved from [place] recently. Lives with family. Never a smoker. PHYSICAL EXAMINATION: GENERAL: Appears in no distress. VITAL SIGNS: Essentially normal. T-max 99.0-99.2, blood pressure 130/70, pulse 85, respirations 18 -20 and O2 sat 97%. SKIN: Shows no areas of skin breakdown, no petechiae or purpura. Port site with the incision for r emoval of the port. No inflammatory changes noted. Mild tenderness, but no erythema. No lymphaden opathy. HEENT: Pupils are not reactive. No light perception. Marked gum resorption and multiple missing t eeth. Dental decay noted. NECK: Supple. No jugular venous distention. LUNGS: Symmetric clear breath sounds. HEART: S1 and S2 with soft aortic murmur, which I had not described in my recent exam in March. This murmurs localized best heard at the pulmonic valve area that is second intercostal space to the left of the sternal border. Regular rate. No S3. ABDOMEN: Soft, nondistended or tender. No ascites, no bladder distention or organomegaly. EXTREMITIES: Patient is able to move all extremities on command. Pulses 1+ in dorsalis pedis. NEUROLOGIC: Plantar responses are flexor. He is awake. He knew he was in 2016, but initially got the month wrong by just a few tests. He recognizes that mistake though. He has fairly decent recol lection of the events that led to his admission. Follows commands and pleasant. LABORATORY DATA: White cell count 1.7-1.5, hemoglobin 10, MCV 95, platelets 157, 34% neutrophils wi th 11% bands, 70% monocytes. Sodium 139, creatinine 1.17. Liver profile normal. Globulin 2.2. Ur inalysis was normal. Brain CT; no acute changes. Chest x-ray with no acute cardiopulmonary disease . ASSESSMENT: Mantle cell lymphoma, recent admission with bacteremia with likely port colonization in a setting of prosthetic aortic valve. Patient presents with some confusional state and there is a decrease in his total neutrophil counts. DISCUSSION: The blood culture sets will be monitored. If they turn positive, then the possibility of endocarditis will have to be considered. If they remain negative, then that would be less likely . The neutropenia has been present before and prior levels have gone down to 1.8 in mid March and 2.1 in 02/2017. This could reflect some degree of bone marrow disorder following chemotherapy. Pr ognosis of mantle cell lymphoma is difficult to predict and the usual staging systems do not work ve ry well because of the propensity for early dissemination. It seems like the oncologist has decided to stop Imbruvica, which means that most likely there is no evidence of recrudescence of the malign hugh at this point in time. He may have had a radiation therapy to the brain for his part of the sc nagement since he did have a STAFF RADIATION THERAPIST involvement and therefore intrathecal chemotherapy and may present with delayed effects in terms of encephalopathy associated with adverse reactions of the treatment. Evidently if the blood cultures turn positive, then we will have to concentrate on ruling out endoc arditis.
[2017-05-09 19:49] LABS: Vancomycin, Trough 15.7 ug/mL
[2017-05-09] MEDS: Vancomycin HCl 1 GM in Premix Bag 1 BAG IVPB SCH (20:23)
[2017-05-09] MEDS: Atorvastatin Calcium 20 MG TAB PO SCH (22:20)
[2017-05-09] MEDS: ALPRAZolam 0.25 MG TAB PO SCH (22:23)
[2017-05-10 04:56] LABS: Anion Gap 13 mmol/L (10-20); BUN (Urea Nitrogen) 16 mg/dL (8.4-25.7); Calc. Creatinine Clearance 44 mL/min (70-130); Carbon Dioxide 23 mmol/L (23-31); Chloride 107 mmol/L (98-107); Estimated GFR-MDRD 59
[2017-05-10 05:29] LABS: Band 8 % (5-11); Hematocrit 29.9 % (42.0-52.0); Mean Platelet Volume 6.9 fL (7.4-10.4); Neutrophil 40 % (42-75); Reactive Lymphocytes 7 % (0-10); Red Blood Cell (RBC) Count 3.16 mill/uL (4.70-6.10); White Blood Cell (WBC) Count 1.6 thou/uL (4.8-10.8)
--- NOTE | 2017-05-10 08:22 | PRG ---
DATE OF SERVICE: 05/10/2017 SUBJECTIVE: The patient is feeling much better. He states he had a headache yesterday. He has been eating 100% of his food. Denies fevers, denies chills, denies nausea and vomiting. Per staff he has had some hallucinations and confusion that continues. PHYSICAL EXAMINATION: VITAL SIGNS: Temperature 98.4, T-max is 99.2, pulse of 85, respirations 12, blood pressure 115/59, pulse ox is 98% on room air. GENERAL: He is awake and alert, in no acute distress. Speech is clear. NECK: Supple. HEART: Regular rate and rhythm with a 2/6 systolic ejection murmur. LUNGS: Clear. ABDOMEN: Soft. EXTREMITIES: With no edema. LABORATORY DATA: White blood cell count 1.6, with 40% neutrophils, hemoglobin and hematocrit 10.1 and 29.9, platelets of 161. Sodium 139, potassium 3.9, chloride 107, CO2 of 23, BUN and creatinine 16 and 1.2 with a GFR of 59, glucose of 108. CRP less than 0.5. Vancomycin trough was 15.7. Blood cultures are negative x24 hours. ASSESSMENT AND PLAN: 1. This is a 76-year-old gentleman with stage IV, mantle cell lymphoma, now with persistent neutropenia and recent Staph epidermidis bacteremia secondary to infected catheter which has now been removed. 2. Lymphoma with neutropenia. Further plan per Oncology, Imbruvica was recently discontinued. 3. Recent bacteremia with neutropenia. Awaiting repeat blood cultures, considering a ESPERANZA to rule out endocarditis. If blood cultures are positive, will consider IV vancomycin and have Pharmacy to monitor. 4. Delirium. Likely a progression of his neurologic involvement of his lymphoma. Await oncology input. [facility]
[2017-05-10] MEDS: Famotidine 20 MG TAB PO SCH ×2 (09:16→20:28)
[2017-05-10] MEDS: Vancomycin HCl 1 GM in Premix Bag 1 BAG IVPB SCH ×2 (09:17→20:38)
--- NOTE | 2017-05-10 13:26 | CON ---
DATE OF CONSULTATION: 05/10/2017 REASON FOR CONSULTATION: Mantle cell lymphoma. HISTORY OF PRESENT ILLNESS: Mr. 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 He had a dental abscess. At that time, his MediPort was removed during that visitation. He was on IV clindamycin. On 03/29, his white count was 1.7 with 14% neutrophils and 22% bands. He was discharged to the rehabi litation facility where he stayed for 2 weeks. During that time, the decision was made to stop his Imbruvica secondary to neutropenia and he has been off medication for approximately 8 days. He was discharged home last week and presented again to the emergency room this weekend with increased conf usion. His white count was 1.7. He had 28% neutrophils and 34% bands, he was admitted for possible bacteremia. He had a brain CT on admission for his altered mental status. There was no evidence o f acute abnormality and no change since prior CT approximately 1 month ago. He was pancultured and started on vancomycin. Dr. Velasquez was consulted and patient has been afebrile during this admission. History was obtained from the patient who is sitting in a chair at bedside. He denies any complai nts of headache, shortness of breath, chest pain, no abdominal pain or dysuria. PAST MEDICAL HISTORY: 1. 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 2. 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 3. Coronary artery disease. 4. Transient atrial fibrillation. 5. Renal insufficiency. 6. Hypertension. 7. Gastroesophageal reflux disease. 8. Hyperlipidemia. 9. Recent bacteremia with epidermitis. PAST SURGICAL HISTORY: 1. Coronary artery bypass grafting. 2. Right shoulder surgery. 3. Aortic valve replacement. 4. Rotator cuff repair. 5. MediPort removal. ALLERGIES: No known drug allergies. HOME MEDICATIONS: 1. Xanax 0.25 p.o. daily. 2. Ecotrin 81 mg daily. 3. Lipitor 20 mg daily. 4. Pepcid 20 mg b.i.d. 5. Isosorbide mononitrate 30 mg daily. 6. Zoloft 25 mg b.i.d. 7. Tramadol p.r.n. FAMILY HISTORY: The patient's daughter had pancreatic cancer. SOCIAL HISTORY: . Has 2 children, lives with his daughter. Past smoker, quit in 1998. No alcohol or illicit drug use. REVIEW OF SYSTEMS: A 12 point review of systems is negative except for noted in HPI. PHYSICAL EXAMINATION: VITAL SIGNS: Temperature 98.7, pulse is 86, respiratory rate 16, blood pressure 139/76, 100% on joaquin m air. GENERAL: Well-developed, well-nourished male in no acute distress. HEENT: Normocephalic, atraumatic. The patient is blind. There are no oral lesions. NECK: Supple. CARDIOVASCULAR: Regular rate and rhythm. LUNGS: Clear. GASTROINTESTINAL: His abdomen is soft, nontender, no organomegaly. Bowel sounds are positive. EXTREMITIES: There is no clubbing, cyanosis or edema. SKIN: No rash. HEMATOLOGICAL: No petechia or purpura. NEUROLOGICAL: Nonfocal. LYMPHATIC: There is no palpable adenopathy. PSYCHIATRIC: The patient is currently alert, oriented and answers questions appropriately. PERTINENT LABORATORY DATA AND X-RAYS: Current WBCs are 1.6, hemoglobin 10.1, hematocrit 29.9, plate let count 161,000 40% neutrophils, 8% bands, 22% lymphocytes, and 19% monocytes. Sodium is 139, pot assium 3.9, chloride 107, CO2 is 23, BUN is 16, creatinine is 1.2, calcium is 10, total bilirubin is 0.2, AST 16, ALT is 11, alkaline phosphatase is 70, serum total protein is 5.8, albumin 3.6, globul in 2.2. Urine is negative for bacteria. Radiology per HPI. IMPRESSION: 1. Mantle cell lymphoma. 2. Neutropenia. 3. Altered mental status with confusion. DISCUSSION: Case was discussed with Dr. Irving. Neutropenia is secondary to Imbruvica and likely consumptive component from bacteremia. We will continue to hold Imbruvica and monitor his CBC. His lymphoma has been well controlled with his medication. The plan will be to follow up with Dr. Higuera ins in the outpatient setting in a couple of weeks to consider rescanning and resuming the medicatio n. The patient's confusion is chronic and intermittent. He is currently not confused. Recommend p alliative care consult to discuss some assistance at home. Dr. Velasquez is on patient's case and monit oring his cultures, which are preliminarily negative. Thank you for the consult. We will follow his hospital course closely.
--- NOTE | 2017-05-10 17:57 | PRG ---
DATE OF SERVICE: 05/10/2017 SUBJECTIVE: Feeling better. He is better oriented. A little bit of sore throat. No respiratory symptoms. No abdominal pain, no diarrhea, no headaches. OBJECTIVE: VITAL SIGNS: T-max 99.2, currently 98.3. Other vital signs are normal. Oral cavity, no erythema. NECK: Supple. LUNGS: Symmetric, clear breath sounds. HEART: S1, S2 with regular rate. NEUROLOGIC: He is oriented, follows commands. LABORATORY DATA: White cell count 1.6, hemoglobin 10.1, platelets 161 with total neutrophil count about 900. Chemistry fairly normal. Liver profile normal. CRP less than 0.5. Blood cultures negative. ASSESSMENT: Mantle cell lymphoma, recent admission bacteremia and port colonization, the port has been removed. Now he presents with confusional state , which seems to have resolved. Blood cultures negative thus far. Advise continued monitoring blood cultures until the final report and if they continue negative, then no further workup for endocarditis required. MARBELLA
[2017-05-10 19:35] LABS: Vancomycin, Trough 26.4 ug/mL
[2017-05-10] MEDS: ALPRAZolam 0.25 MG TAB PO SCH (20:28)
[2017-05-10] MEDS: Atorvastatin Calcium 20 MG TAB PO SCH (20:28)
[2017-05-11] MEDS: HYDROcodone/Acetaminophen 5/325 mg Tablet PO PRN (00:22)
[2017-05-11 03:56] LABS: Anion Gap 10 mmol/L (10-20); BUN (Urea Nitrogen) 17 mg/dL (8.4-25.7); Calc. Creatinine Clearance 45 mL/min (70-130); Calcium 10.4 mg/dL (7.8-10.44); Carbon Dioxide 25 mmol/L (23-31); Chloride 106 mmol/L (98-107); Estimated GFR-MDRD 60
[2017-05-11 04:27] LABS: Band 13 % (5-11); Hematocrit 29.3 % (42.0-52.0); Mean Platelet Volume 6.4 fL (7.4-10.4); Neutrophil 33 % (42-75); Reactive Lymphocytes 3 % (0-10); Red Blood Cell (RBC) Count 3.08 mill/uL (4.70-6.10); White Blood Cell (WBC) Count 1.4 thou/uL (4.8-10.8)
--- NOTE | 2017-05-11 08:16 | PRG ---
DATE OF SERVICE: 05/11/2017 SUBJECTIVE: The patient is feeling okay. He denies pain at this time. He does complain of occasio nal headaches which come and go, better pain relief with the hydrocodone. Oncology planning for a l umbar puncture for CSF evaluation. The patient denies chest pain, shortness of breath, nausea, vomi ting. PHYSICAL EXAMINATION: VITAL SIGNS: Temperature 97.9, T-max of 98.7, pulse of 69, respirations 18, blood pressure 104/56. GENERAL: He is awake and alert, in no acute distress. HEENT: Mucosa is moist. NECK: Supple. HEART: Regular rate and rhythm. LUNGS: Clear bilaterally. ABDOMEN: Soft, nontender, nondistended. EXTREMITIES: With no edema. LABORATORY DATA: White blood cell count 1.4, with 33% neutrophils, 13% bands, 26% lymphocytes, 19% monocytes, hemoglobin and hematocrit 10.1 and 29.3 with macrocytic indices, and platelets of 130, so dium 137, potassium 4.0, chloride 106, CO2 25, BUN and creatinine 17 and 1.18 with a GFR of 60. Ser um glucose of 96, calcium 10.4. ASSESSMENT AND PLAN: 1. This is a 76-year-old gentleman with mantle cell lymphoma, recent bacteremia now with mental sta tus change and persistent neutropenia. 2. Neutropenia, per Oncology, likely secondary to Imbruvica. 3. Stage IV mantle cell lymphoma with neurologic involvement. Oncology recommending lumbar punctur e for CSF evaluation. 4. Delirium, again awaiting CSF evaluation. DISPOSITION: Family deciding on placement. He is becoming more and more difficult to manage at [facility] due to his mental state and increased confusion, presenting a risk for himself and others. [facility] home health.
[2017-05-11] MEDS: Famotidine 20 MG TAB PO SCH ×2 (08:18→20:49)
[2017-05-11] MEDS: Aspirin 81 mg Enteric Coated Tablet PO SCH (08:19)
[2017-05-11] MEDS ORDERED: Vancomycin HCl 1.5 GM in Sodium Chloride 0.9% 250 ML 300 ML IVPB SCH (09:00)
[2017-05-11 10:42] LABS: CSF, Glucose 50 mg/dl (40-70)
--- NOTE | 2017-05-11 12:50 | RAD ---
LUMBAR PUNCTURE WITH FLUOROSCOPIC GUIDANCE: 05/11/2017 HISTORY: A 76-year-old male with a history of lymphoma and altered mental status. Clinical concern for intra cranial involvement of lymphoma. FINDINGS: Informed consent obtained prior to the procedure. The patient was placed in the oblique prone position on the fluoroscopic table, and the skin overlyi ng the L3 level was anesthetized with 1% buffered Lidocaine. With intermittent fluoroscopic guidance, a 22 gauge spinal needle was advanced into the thecal sac a t the L2-L3 level and removal of the stylet yielded clear cerebrospinal fluid. Opening pressure was in the 8-9 cm of water range. Subsequently, 10 mL of clear CSF was removed. The patient tolerated the procedure well. IMPRESSION: Successful lumbar puncture with fluoroscopic guidance. POS: FRANKLIN
[2017-05-11] MEDS: Atorvastatin Calcium 20 MG TAB PO SCH (20:49)
[2017-05-12] MEDS: HYDROcodone/Acetaminophen 5/325 mg Tablet PO PRN ×2 (01:03→19:32)
[2017-05-12] MEDS: Famotidine 20 MG TAB PO SCH ×2 (08:04→20:48)
[2017-05-12] MEDS: Aspirin 81 mg Enteric Coated Tablet PO SCH (08:05)
[2017-05-12 08:19] LABS: Hematocrit 34.3 % (42.0-52.0); Mean Platelet Volume 7.1 fL (7.4-10.4); Red Blood Cell (RBC) Count 3.67 mill/uL (4.70-6.10); White Blood Cell (WBC) Count 1.5 thou/uL (4.8-10.8)
--- NOTE | 2017-05-12 08:19 | PRG ---
DATE OF SERVICE: 05/12/2017 SUBJECTIVE: The patient is feeling okay. He denies pain, denies shortness of breath, chest pain, n ausea or vomiting. He tolerated the lumbar puncture yesterday. He states he has a good appetite. No headaches today. He seems more lucid and not as confused today. PHYSICAL EXAMINATION: VITAL SIGNS: Temperature 98.4, T-max of 99.1, pulse of 82, respirations 18, blood pressure 105/64, pulse ox is 98% on room air. GENERAL: He is awake and alert, in no acute distress. Speech is clear. HEENT: Mucosa is moist. NECK: Supple. HEART: Regular rate and rhythm without murmur. LUNGS: Clear bilaterally. ABDOMEN: Soft. EXTREMITIES: With no edema. NEUROLOGIC: Sensation is intact. Strength is 5/5 bilaterally. He is alert and oriented to person and time. He has decreased recall as well as decreased ability to concentrate with serial sevens. LABORATORY DATA: CBC is pending from this morning. CSF fluid was colorless and clear with 417 posi tive red blood cells, 54 protein, but normal glucose. Pathology was negative for lymphoma in the CS F fluid. Blood cultures and urine cultures have been negative. ASSESSMENT AND PLAN: This is a 76-year-old gentleman with stage IV mantle cell lymphoma status post Imbruvica therapy, now off of chemotherapy due to persistent neutropenia. 1. Stage IV mantle cell lymphoma with neurologic involvement with resultant blindness. Oncology fo r further plans as far as therapy. 2. Delirium with dementia. CSF fluid has been negative for lymphoma. 3. Recent bacteremia which has now resolved. We will discontinue antibiotics if okay with Dr. Karla barroso 4. Disposition: Family is deciding on placement. They are looking at different nursing homes due to his inability to be managed safely at home.
[2017-05-12 08:42] LABS: Band 9 % (5-11); Neutrophil 29 % (42-75)
[2017-05-12] MEDS: Atorvastatin Calcium 20 MG TAB PO SCH (20:48)
[2017-05-13] MEDS: HYDROcodone/Acetaminophen 5/325 mg Tablet PO PRN (04:09)
--- NOTE | 2017-05-13 08:18 | PRG ---
DATE OF SERVICE: 05/13/2017 SUBJECTIVE: The patient is feeling well. He denies any complaints. He denies chest pain, shortness of breath, nausea, or vomiting. He has not had a bowel movement since yesterday, but has a good carlos etite. He said he does not feel constipated at this time, possibly a little bit more confused and tr keyla to get out of bed last night and today. PHYSICAL EXAMINATION: VITAL SIGNS: Temperature 98.3, T-max of 99.2; pulse of 84; respirations 16; pulse ox 98% on room air ; blood pressure 90-108/53-67. GENERAL: He is awake and alert, in no acute distress. Speech is clear. He answers questions approp riately. HEENT: Mucosa is moist. HEART: Regular rate and rhythm. LUNGS: Clear bilaterally. ABDOMEN: Soft. EXTREMITIES: With no edema. LABORATORY DATA: White blood cell count 1500, with 29% neutrophils, 9% bands, 49% lymphocytes, hemog lobin and hematocrit 11.1 and 34.3, platelets of 152. Again, CSF fluid was negative for lymphoma. ASSESSMENT AND PLAN: This is a 76-year-old gentleman with stage IV, mantle cell lymphoma with neurol ogic involvement, status post chemotherapy, admitted for neutropenia and mental status change. 1. Stage IV mantle cell lymphoma. Further plans as per Oncology. 2. Delirium with dementia. CSF fluid negative for lymphoma, still with on and off episodes of confu mackenzie, likely becoming his baseline with dementia. 3. Recent bacteremia, resolved. He is off antibiotics at this time. Dr. Velasquez was not recommending outpatient antibiotics unless he develops a fever. 4. Anxiety/depression seems better and more calm on the higher dose of Zoloft as well as Xanax p.r.n . 5. Coronary artery disease is stable, on his current medications. 6. Disposition: Awaiting placement.
[2017-05-13] MEDS: Aspirin 81 mg Enteric Coated Tablet PO SCH (09:07)
[2017-05-13] MEDS: Famotidine 20 MG TAB PO SCH ×2 (09:08→21:57)
[2017-05-13] MEDS: Melatonin 3 MG TAB PO PRN (21:56)
[2017-05-13] MEDS: Atorvastatin Calcium 20 MG TAB PO SCH (21:56)
[2017-05-14] MEDS: HYDROcodone/Acetaminophen 5/325 mg Tablet PO PRN (03:54)
[2017-05-14] MEDS: Famotidine 20 MG TAB PO SCH ×2 (08:00→21:06)
[2017-05-14] MEDS: Aspirin 81 mg Enteric Coated Tablet PO SCH (08:00)
[2017-05-14] MEDS ORDERED: Magnesium Citrate 300 ML BOT PO PRN (08:12)
[2017-05-14] MEDS ORDERED: Bisacodyl 5 MG TAB PO PRN (08:12)
--- NOTE | 2017-05-14 08:36 | PRG ---
DATE OF SERVICE: 05/14/2017 DATE OF ADMISSION: 05/08/2017 SUBJECTIVE: The patient is feeling well. He has not had BM in few days, but has some urge to go, bu t not a strong urge. Denies chest pain, shortness of breath. Denies nausea or vomiting. He does arguelles ve a good appetite. His mental state has been stable, not having more confusion. He states he did h ave headache this morning, but resolved with Tylenol. He is anxious to go to rehabilitation unit. OBJECTIVE: VITAL SIGNS: Temperature 97.6, pulse of 64, respirations 20, blood pressure 109/59, and pulse ox is 99% on room air. GENERAL: He is awake and alert, in no acute distress. Speech is clear. NECK: Supple. HEART: Regular rate and rhythm. LUNGS: Clear bilaterally. ABDOMEN: Soft. No tenderness. No masses. No rebound. EXTREMITIES: With no edema. LABORATORY DATA: Reviewed. Cultures evolving negative. He is off antibiotics at this point. ASSESSMENT AND PLAN: This is a 76-year-old gentleman with stage IV mantle cell lymphoma with neurolo gic involvement, admitted for neutropenia and mental status change. 1. Mental status change secondary to delirium with dementia. Cerebrospinal fluid has been negative. Cultures have been negative. He is off antibiotics and his mental state has been stable. 2. Stage IV mantle cell lymphoma. Further plan as per Oncology. He is off Imbruvica. 3. Recent bacteremia. He is off of antibiotics. Dr. Velasquez is not recommending outpatient antibioti cs unless he develops a fever. 4. Anxiety and depression, seems to be keeping his anxiety stable on Zoloft and Xanax p.r.n. 5. Coronary artery disease is stable on his current medications. 6. Constipation. We will start Dulcolax and magnesium citrate p.r.n. [email or web address] and he will be stable for discharge once he is accepted .
--- NOTE | 2017-05-14 14:27 | PQF ---
CYNDI ADEN YASMIN DO [id number] CLINICAL DOCUMENTATION IMPROVEMENT CLARIFICATION FORM: ICD-10 Updated PLEASE DO AN ADDENDUM TO THE PROGRESS NOTE WITH ANY DOCUMENTATION UPDATES OR ADDITIONS AND CARRY THROUGH TO DC SUMMARY. THANK YOU. DATE: 05-14-17 ATTN: DR. CUELLAR Please exercise your independent, professional judgment in responding to the clarification form. Clinical indicators are provided on the bottom of this form for your review Please check appropriate box(s): [ ] Encephalopathy: Type: [ ] Acute [ ] Subacute [ ] Chronic Etiology: [ ] Metabolic [ ] Toxic d/t treatments for mantle cell lymphoma [ ] Unspecified [ ] in the setting of underlying dementia [ ] Other (please specify) [ ] Transient Alteration of Awareness [ ] Other diagnosis [ x] Unable to determine In addition, please specify: Present on Admission (POA): [ x ] Yes [ ] No [ ] Unable to determine For continuity of documentation, please document condition throughout progress notes and discharge summary. Thank You. CLINICAL INDICATORS - SIGNS / SYMPTOMS / LABS H&P: MENTAL STATUS CHANGE, CONFUSION MOMENTS WHERE HE SEEMS CLEAR PER FAMILY, BUT OVERALL MORE AND MORE CONFUSED MENTAL STATUS CHANGE, POSSIBLY D/T BACTEREMIA , POSSIBLE PROGRESSION OF NEUROLOGIC COMPONENT OF MANTLE CELL LYMPHOMA, POSSIBLE R/T DEMENTIA 05-09 ID CONSULT: WORSENING CONFUSIONAL STATE MAY HAVE HAD A RADIATION THERAPY TO BRAIN FOR HIS PART OF THE MANAGMENT SINCE HE DID HAVE A MANAGER CARGO INVOLVEMENT AND THEREFORE INTRATHECAL CHEMOTHERAPY AND MAY PREENT W/ DELAYED EFFECTS IN TERMS OF ENCEPHALOPATHY ASSOCIATED W/ ADVERSE REACTIONS OF THE TREATMENT. ATTENDING PN 05-14: MENTAL STATUS CHANGE D/T DELIRIUM W/ DEMENTIA RISK FACTORS H&P: RECENT ADMISSION FOR BACTEREMIA D/T INDWELLING CATHETER MANTLE CELL LYMPHOMA W/ CHEMO/RADIATION NOW ADMITTED W/ NEUTROPENIA BUT NO FEVER TREATMENTS: CPOE - BLOOD / URINE CULTURES 05-08 CXR - NO ACTIVE DISEASE 05-[address] - NO ACITVE DISEASE 05-11 LUMBAR PUNCTURE MAR - VANCOMYCIN IV EMPIRICALLY 05-10 THANK YOU, YESENIA (This form is maintained as a part of the permanent medical record) 2014 [employer]. All Rights Reserved Yesenia Chandra RN, BS [email or web address]
[2017-05-14] MEDS: ALPRAZolam 0.25 MG TAB PO PRN (21:06)
[2017-05-14] MEDS: Atorvastatin Calcium 20 MG TAB PO SCH (21:07)
[2017-05-15] MEDS: Melatonin 3 MG TAB PO PRN (02:06)
[2017-05-15] MEDS: HYDROcodone/Acetaminophen 5/325 mg Tablet PO PRN ×2 (02:06→21:13)
[2017-05-15] MEDS: Famotidine 20 MG TAB PO SCH ×2 (08:39→21:12)
[2017-05-15] MEDS: Aspirin 81 mg Enteric Coated Tablet PO SCH (08:40)
[2017-05-15] MEDS: Cepastat Lozenges 1 LOZ PO PRN (21:11)
[2017-05-15] MEDS: Atorvastatin Calcium 20 MG TAB PO SCH (21:12)
[2017-05-16] MEDS: Cepastat Lozenges 1 LOZ PO PRN ×2 (04:31→09:28)
[2017-05-16] MEDS: Aspirin 81 mg Enteric Coated Tablet PO SCH (09:28)
[2017-05-16] MEDS: Famotidine 20 MG TAB PO SCH ×2 (09:28→22:15)
[2017-05-16] MEDS: ALPRAZolam 0.25 MG TAB PO PRN (09:29)
[2017-05-16 12:07] LABS: #Eosinphils 0.1 thou/uL (0.0-0.7); #Lymphocytes 0.7 thou/uL (1.20-3.40); #Monocytes 0.3 thou/uL (0.11-0.59); #Neutrophils 0.8 thou/uL (1.40-6.50); %Basophils 0.7 % (0.0-1.0); %Eosinophils 4.3 % (0.0-10.0); %Lymphocytes 35.9 % (21.0-51.0); %Monocytes 14.3 % (0.0-10.0); Mean Platelet Volume 7.1 fL (7.4-10.4); Red Blood Cell (RBC) Count 3.83 mill/uL (4.70-6.10); White Blood Cell (WBC) Count 1.9 thou/uL (4.8-10.8)
--- NOTE | 2017-05-16 12:41 | PRG ---
DATE OF SERVICE: 05/16/2017 SUBJECTIVE: The patient is feeling fine. He did have a bowel movement. He does seem more confused today and gets paranoid with the nurses at times about medications and who to trust. Denies any pain , denies fevers, denies nausea or vomiting, denies shortness of breath. OBJECTIVE: VITAL SIGNS: Temperature 98.1, pulse of 81, respirations 16, blood pressure yesterday was 101/57, pu lse ox 97% on room air. GENERAL: He is awake and alert, in no acute distress. Speech is clear. HEENT: Mucosa is moist. Throat is clear. NECK: Supple. HEART: Regular rate and rhythm. LUNGS: Clear. ABDOMEN: Soft. EXTREMITIES: With no edema. LABORATORY DATA: CBC and urinalysis are pending due to his increased confusion today. ASSESSMENT AND PLAN: This is a 76-year-old gentleman with stage IV, mantle cell lymphoma with neurol ogic involvement and resultant blindness, admitted for mental status change. CSF fluid has been nega tive. Cultures have been negative. He is now off antibiotics. 1. Recent bacteremia, status post removal of a MediPort, remained stable. We will repeat CBC today. 2. Anxiety and depression, improved with Zoloft and Xanax. We will continue that. 3. Constipation, improved with Dulcolax and magnesium citrate. We will continue stool softener. 4. Disposition: Awaiting approval from [facility] for placement and we will transfer there when he is able.
[2017-05-16 13:25] LABS: Bilirubin Negative (Negative); Blood, Urine Negative (Negative); Glucose, Urine (Dipstick) Negative (Negative); Ketone, Urine Negative (Negative); Nitrite Negative (Negative); Protein, Urine (Dipstick) Negative (Neg-Trace); Urobilinogen 0.2 mg/dL (0.2-1.0)
[2017-05-16] MEDS: Atorvastatin Calcium 20 MG TAB PO SCH (22:15)
[2017-05-16] MEDS: HYDROcodone/Acetaminophen 5/325 mg Tablet PO PRN (22:16)
[2017-05-17] MEDS: Cepastat Lozenges 1 LOZ PO PRN (04:17)
[2017-05-17] MEDS: Famotidine 20 MG TAB PO SCH ×2 (08:22→21:03)
[2017-05-17] MEDS: Aspirin 81 mg Enteric Coated Tablet PO SCH (08:22)
[2017-05-17] MEDS: Atorvastatin Calcium 20 MG TAB PO SCH (21:03)
[2017-05-18 08:23] VITALS: BP 123/68; TEMP 97.8
[2017-05-18] MEDS: Aspirin 81 mg Enteric Coated Tablet PO SCH (08:30)
[2017-05-18] MEDS: Famotidine 20 MG TAB PO SCH (08:30)
[2017-05-18] MEDS: ALPRAZolam 0.25 MG TAB PO PRN (08:31)
--- NOTE | 2017-05-18 13:15 | PRG ---
DATE OF SERVICE: 05/18/2017 SUBJECTIVE: I am covering for Dr. Hill today. The patient continues to have confusion and paran oia with medications. He denies pain at this time. He has not had nausea and vomiting. PHYSICAL EXAMINATION: VITAL SIGNS: Temperature 97.8, pulse 72, respirations 18, oxygen saturation 100% on room air, blood pressure 123/68. GENERAL: Alert and oriented to name. HEENT: Moist mucous membranes with a nonerythematous throat. HEART: Regular rate and rhythm, no murmurs. LUNGS: Clear to auscultation bilaterally, no wheezes or rales. ABDOMEN: Soft, nontender, nondistended. Bowel sounds heard throughout. EXTREMITIES: No cyanosis, clubbing or edema. LABORATORY DATA: Most recent CBC shows white blood cell count 1.9 which is a slight improvement, hem oglobin 11.9, hematocrit 36.0, MCV 94.2, platelets 158. ASSESSMENT AND PLAN: 1. Stage IV mantle cell lymphoma. Family has opted to not continue cancer treatments at this time. 2. Recent bacteremia. He is no longer on antibiotics and MediPort is removed. 3. Depression and anxiety. Continue Zoloft and Xanax. 4. Constipation. Continue stool softeners. DISPOSITION: Awaiting skilled nursing placement.
--- NOTE | 2017-05-25 06:41 | DIS ---
DATE OF ADMISSION: 05/08/2017 DATE OF DISCHARGE: 05/18/2017 ADMISSION DIAGNOSES: 1. Mental status change. 2. History of mantle cell lymphoma, status post chemotherapy and radiation. 3. History of coronary artery disease. 4. Anxiety. DISCHARGE DIAGNOSES: 1. Neurologic component of mantle cell lymphoma with metastasis and recent bacteremia. 2. History of depression and anxiety. CONSULTATIONS: Dr. Velasquez for Infectious Disease; Yanely Luz APRN for Oncology. HOSPITAL COURSE: This is a 76-year-old gentleman with known mantel cell lymphoma with metastasis to the brain with a recent admission for bacteremia and neutropenic fever. He had been discharged home and then returned for increased confusion, again workup was initiated to rule out infection. Dr. Mil steel was consulted and agreed with continuing broad spectrum antibiotics. He had a recent admission fo r port colonization and the port was removed. He felt the initial pain was likely due to the Imbruvi ca, chemotherapy, but wanted to await blood culture results. Oncology, Yanely Luz evaluated the pat ient, she agreed with discontinuing the Imbruvica until monitoring his CBC. The blood cultures and u rine cultures ended up being negative with no growth of any bacteria. Antibiotics were discontinued. A lumbar puncture was done to rule out any lymphoma in the spinal fluid as well as any infection an d that was negative as well. The patient returned to his baseline state. [facility] to the inability to take care of him appropriately at home and needing to be home alone and he was transferred to [facility] in good condition. DISCHARGE PHYSICAL EXAMINATION: VITAL SIGNS: Temperature 97.8, pulse 72, respirations 18, blood pressure 123/68. GENERAL: He is awake and alert, oriented to person. HEENT: Mucosa is moist. HEART: Regular rate and rhythm. LUNGS: Clear. ABDOMEN: Soft. EXTREMITIES: With no edema. DISCHARGE LABORATORY DATA: Xanax 0.25 mg t.i.d. p.r.n., aspirin 81 mg daily, Lipitor 20 mg at bedtim e, Pepcid 20 mg twice a day, Imdur 30 mg daily, melatonin p.r.n., sertraline 50 mg b.i.d., tramadol 5 0 mg p.r.n. pain. FOLLOWUP INSTRUCTIONS: The patient will be followed at [facility].
--- NOTE | 2017-06-05 12:19 | EKG ---
Test Reason : Blood Pressure : / mmHG Vent. Rate : 068 BPM Atrial Rate : 068 BPM P-R Int : 196 ms QRS Dur : 078 ms QT Int : 364 ms P-R-T Axes : 038 052 078 degrees QTc Int : 387 ms Normal sinus rhythm Normal ECG Confirmed by ROSA M PRYOR, JALEN Pittman ([id number]), city editor GERMÁN LEDESMA ([id number]) on 06/05/2017 12:19:00 PM Referred By: Confirmed By:JALEN MEDEROS MD
== END 2017-05-18 16:55 | DRG 809 ==
LOC: ERS 10:06 → ONC 14:30
PROVIDERS: ADMIT Family Medicine; ATTEND Family Medicine
PROC: 009U3ZX Drainage of Spinal Canal, Percutaneous Approach, Diagnostic (ICD-10-PCS; principal; 2017-05-11)
PROC: B01B1ZZ Fluoroscopy of Spinal Cord using Low Osmolar Contrast (ICD-10-PCS; 2017-05-11)
DX: D70.1 Agranulocytosis secondary to cancer chemotherapy (principal); C83.10 Mantle cell lymphoma, unspecified site; C79.31 Secondary malignant neoplasm of brain; F05 Delirium due to known physiological condition; F03.90 Unspecified dementia, unspecified severity, without behavioral disturbance, psychotic disturbance, mood disturbance, and anxiety; I48.91 Unspecified atrial fibrillation; D63.0 Anemia in neoplastic disease; H54.7 Unspecified visual loss; Z92.21 Personal history of antineoplastic chemotherapy; Z92.3 Personal history of irradiation; I25.10 Atherosclerotic heart disease of native coronary artery without angina pectoris; Z95.1 Presence of aortocoronary bypass graft; Z95.2 Presence of prosthetic heart valve; K21.9 Gastro-esophageal reflux disease without esophagitis; F41.9 Anxiety disorder, unspecified; I10 Essential (primary) hypertension; G89.29 Other chronic pain; Z79.82 Long term (current) use of aspirin; F32.9 Major depressive disorder, single episode, unspecified; K59.00 Constipation, unspecified; T45.1X5A Adverse effect of antineoplastic and immunosuppressive drugs, initial encounter; Z87.891 Personal history of nicotine dependence; E78.2 Mixed hyperlipidemia
CPT/HCPCS: 36415; 62270; 70450; 71010; 80048; 80053; 80202; 81003; 82140; 82248; 82550; 82553; 82607; 82746; 82945; 83605; 83615; 83735; 84100; 84157; 84443; 84484; 84550; 85025; 86140; 86780; 87040; 87086; 88112; 89051; 93005; 96361; 96365; A4216; J2543; J3370; J7050

== ENCOUNTER 2017-06-29 11:33 | Observation (INO) | payer MEDICARE ==
[2017-06-29 12:42] LABS: #Lymphocytes 0.5 thou/uL (1.20-3.40); #Monocytes 0.5 thou/uL (0.11-0.59); %Basophils 0.4 % (0.0-1.0); %Eosinophils 0.9 % (0.0-10.0); %Lymphocytes 12.5 % (21.0-51.0); %Neutrophils 74.2 % (42.0-75.0); Hemoglobin 12.2 g/dL (14.0-18.0); Mean Corpuscular HGB CONC 33.3 g/dL (32.0-36.0); Mean Corpuscular Hemoglobin 31.1 pg (27.0-31.0); Mean Corpuscular Volume 93.5 fl (80.0-94.0); Mean Platelet Volume 7.4 fL (7.4-10.4); Platelet Count 161 thou/uL (130-400); RBC Distribution Width 13.5 % (11.5-14.5); Red Blood Cell (RBC) Count 3.91 mill/uL (4.70-6.10)
[2017-06-29 12:47] LABS: PTT 30.7 SEC (22.9-36.1); Prothrombin Time 13.3 SEC (12.0-14.7)
[2017-06-29 12:49] LABS: ALT (SGPT) 12 U/L (8-55); AST (SGOT) 30 U/L (5-34); Albumin 4.2 g/dL (3.4-4.8); Alkaline Phosphatase 80 U/L (40-150); Anion Gap 15 mmol/L (10-20); BUN (Urea Nitrogen) 30 mg/dL (8.4-25.7); Bilirubin, Total 0.5 mg/dL (0.2-1.2); Calc. Creatinine Clearance 0 mL/min (70-130); Calcium 11.1 mg/dL (7.8-10.44); Carbon Dioxide 21 mmol/L (23-31); Chloride 112 mmol/L (98-107); Estimated GFR-MDRD 40; Globulin 2.6 g/dL (2.4-3.5); Glucose 99 mg/dL (83-110); Potassium 4.6 mmol/L (3.5-5.1); Protein, Total 6.8 g/dL (5.8-8.1); Sodium 143 mmol/L (136-145)
[2017-06-29 13:46] LABS: Iron 27 ug/dL (65-175); Iron Binding Capacity, Total 259 mcg/dL (261-462)
[2017-06-29 15:16] LABS: Bilirubin Negative (Negative); Blood, Urine Negative (Negative); Clarity CLEAR (Clear); Glucose, Urine (Dipstick) Negative (Negative); Leukocyte Negative (Negative); Nitrite Negative (Negative); Protein, Urine (Dipstick) Negative (Neg-Trace); Specific Gravity, Urine 1.015 (1.002-1.036); Urobilinogen 0.2 mg/dL (0.2-1.0)
[2017-06-29] MEDS ORDERED: Pantoprazole 40 MG VIAL ONE (15:18)
[2017-06-29] MEDS ORDERED: Melatonin 3 MG TAB PO PRN (17:38)
[2017-06-29] MEDS ORDERED: Senokot 8.6 MG TAB PO PRN (17:38)
[2017-06-29] MEDS ORDERED: Acetaminophen 325 MG TAB PO PRN (17:38)
[2017-06-29] MEDS ORDERED: Ondansetron HCl/PF 4 MG/2 ML Vial IVP PRN (17:38)
[2017-06-29] MEDS ORDERED: Guaifenesin DM 100-10/5 ML UDCUP PO PRN (17:38)
--- NOTE | 2017-06-29 20:44 | HP ---
REASON FOR ADMISSION: Rectal bleed. HISTORY OF PRESENTING ILLNESS: Patient was sent from [facility] for an episode of signifi cant amount of rectal bleed, which happened this morning. He was sent to emergency room for further evaluation. Please note majority of this history is obtained by my talking to patient's daughter her e at bedside, ER records, and prior records as patient has fairly advanced dementia and does not cont ribute much to the history. Also, the daughter mentions that he has been having worsening of his mago lucinations from . He has had increased falls. He was placed on Zyprexa at night and s ertraline in the morning from after having a followup with psychiatrist. Xanax was discontinued , which has caused him to not sleep per daughter. No cholo bleeding at present. He had a stool occu lt blood test done in the ER, which was positive. Patient has had prior endoscopy and colonoscopies done by Dr. Atkinson in the past. PAST MEDICAL AND SURGICAL HISTORY: History of mantle cell lymphoma, finished chemo and radiation, la st radiation was in December of last year; coronary artery disease; GERD; dyslipidemia; hypertension; susanna or history of Staph infection; history of porcine aortic valve replacement; Mediport; CABG done in ; dementia. CURRENT MEDICATIONS: Imdur 30 mg p.o. daily, ranitidine 150 mg p.o. twice daily, Xanax 0.25 mg p.o. 3 times daily p.r.n. and bedtime, sertraline 100 mg p.o. at bedtime, Zyprexa 2.5 mg p.o. at bedtime, Ultram p.r.n., aspirin 81 mg p.o. daily, Lipitor 20 mg p.o. daily. ALLERGIES: No known drug allergies. PERSONAL HISTORY: Patient is a jail resident, quit smoking cigars 40 years ago, does not abu se alcohol or drugs. FAMILY HISTORY: Mom in her 90s. Father of massive ND in his 50s. REVIEW OF SYSTEMS: Cannot be obtained as patient is not fully oriented. PHYSICAL EXAMINATION: GENERAL: Patient is a 76-year-old male who is currently not in any acute distress. VITAL SIGNS: Blood pressure 116/66, pulse 82 per minute, respiratory rate 20 per minute, temperature 98.7 degrees Fahrenheit, saturating 99% on room air. NECK: Supple, no elevated JVD. HEENT: Extraocular muscles intact. Pupils reacting to light. Oral cavity, mucous membranes are dry . No exudates or congestion. CARDIOVASCULAR SYSTEM: S1, S2 heard. Regular rhythm. RESPIRATORY SYSTEM: Air entry 1+ bilateral. No rales or rhonchi. ABDOMEN: Soft, bowel sounds heard. No tenderness, rigidity, or guarding. EXTREMITIES: Patient has multiple bruises especially over the knees and legs likely from falling. N o edema or ischemic ulcerations. VASCULAR: Peripheral pulses are 1+ bilateral. CENTRAL NERVOUS SYSTEM: No gross focal deficits. Patient moves all 4 extremities. PSYCHIATRIC SYSTEM: No obvious hallucinations or delusions at present. Patient responds to simple q uestions. LABORATORY AND X-RAY FINDINGS: White count of 4, H&H 12 and 36, platelet count 161, MCV is 93 with 7 4% neutrophils. Serum bicarbonate 21, BUN 30, creatinine 1.6, glucose 99. Serum iron is 27, ferriti n is 1152. Liver enzymes within normal limits. Albumin is 4.2. Stool occult blood is positive. EK G done shows normal sinus rhythm at 86 beats per minute. CLINICAL IMPRESSION AND PLAN: Patient will be under observation on medical floor for an episode of [facility]. We will obtain serial H&H. Current H&H is 12 and 36. He also appe ars to have mild acute kidney injury with elevated BUN and creatinine. He will be gently hydrated wi th normal saline at 70 mL per hour. We will continue his Xanax at bedtime along with Risperdal. Ruth cedeno's daughter states that he and Zyprexa not going well with patient worsening and in view of this, we will switch him over to risperidone and see how he does tonight. He will continue Zoloft during daytime along with Lipitor and Ultram p.r.n. He will be on Protonix 40 mg IV q.12 hourly. If patien t's H&H drops, a Gastroenterology consultation will be requested. He will be on clear liquid diet un til his H&H remained stable. The patient is DNR. This was confirmed with patient's daughter who is here at bedside. Power of workers compensation attorney is his grandson, Mr. Shyam Child.
[2017-06-29] MEDS ORDERED: ALPRAZolam 0.25 MG TAB PO SCH (21:00)
[2017-06-29] MEDS ORDERED: Atorvastatin Calcium 20 MG TAB PO SCH (21:00)
[2017-06-29] MEDS ORDERED: risperiDONE 1 MG TAB PO SCH (21:00)
[2017-06-29] MEDS: Pantoprazole 40 MG VIAL IVP SCH (21:00)
[2017-06-29 22:46] VITALS: BMI 23.7
[2017-06-29] MEDS: traMADol HCl 50 MG TAB PO PRN (23:28)
[2017-06-30 06:39] LABS: ALT (SGPT) 10 U/L (8-55); AST (SGOT) 24 U/L (5-34); Albumin 3.6 g/dL (3.4-4.8); Alkaline Phosphatase 64 U/L (40-150); Anion Gap 12 mmol/L (10-20); BUN (Urea Nitrogen) 23 mg/dL (8.4-25.7); Bilirubin, Total 0.5 mg/dL (0.2-1.2); Calc. Creatinine Clearance 33 mL/min (70-130); Calcium 10.3 mg/dL (7.8-10.44); Carbon Dioxide 21 mmol/L (23-31); Chloride 114 mmol/L (98-107); Estimated GFR-MDRD 43; Glucose 83 mg/dL (83-110); Potassium 3.8 mmol/L (3.5-5.1); Protein, Total 5.6 g/dL (5.8-8.1); Sodium 143 mmol/L (136-145)
[2017-06-30] MEDS: Pantoprazole 40 MG VIAL IVP SCH (08:22)
[2017-06-30] MEDS: traMADol HCl 50 MG TAB PO PRN (09:20)
--- NOTE | 2017-06-30 11:25 | PDOC.PN ---
- Subjective Encounter Start Date: 06/30/17 Encounter Start Time: 09:00 Subjective: awake, not in distress -: had one bm which was normal per staff -: no abd pain or nausea - Objective Resuscitation Status: Resuscitation Status DNR:Do Not Resuscitate MAR Reviewed: Yes Vital Signs & Weight: Vital Signs (12 hours) Temp Pulse Resp BP Pulse Ox 06/30/17 08:20 98.9 F 87 14 102/57 L 06/30/17 07:42 98.9 F 86 14 94 L 06/30/17 06:00 98.4 F 78 18 124/78 99 06/30/17 04:00 98.0 F 76 16 120/72 99 Weight Admit Weight 129 lb 13.636 oz Weight 129 lb 13.636 oz I&O: 06/29/17 06/30/17 07/01/17 06:59 06:59 06:59 Intake Total 600 Output Total 750 Balance -150 Result Diagrams: 06/30/17 05:28 06/30/17 05:28 Phys Exam - Physical Examination HEENT: PERRLA, moist MMs Neck: no JVD, supple Respiratory: no wheezing, no rales Cardiovascular: RRR, no significant murmur Gastrointestinal: soft, non-tender, positive bowel sounds Musculoskeletal: no edema, pulses present Neurological: non-focal, moves all 4 limbs Dx/Plan (1) GI bleed Code(s): K92.2 - GASTROINTESTINAL HEMORRHAGE, UNSPECIFIED Status: Resolved (2) Mantle cell lymphoma Code(s): C83.10 - MANTLE CELL LYMPHOMA, UNSPECIFIED SITE Status: Chronic Qualifiers: Lymphoma site: unspecified region Qualified Code(s): C83.10 - Mantle cell lymphoma, unspecified site (3) Dementia Code(s): F03.90 - UNSPECIFIED DEMENTIA WITHOUT BEHAVIORAL DISTURBANCE Status: Chronic Qualifiers: Dementia type: unspecified type (4) Dyslipidemia Code(s): E78.5 - HYPERLIPIDEMIA, UNSPECIFIED Status: Chronic - Plan drop in Hb is due to iv fluids -: no further bleeding here -: d/w grandson over phone -: outpt f/u with on has been set up -: dc pt to snf * .
[2017-06-30 11:36] VITALS: TEMP 97.3
[2017-06-30 12:30] VITALS: BP 101/61
--- NOTE | 2017-07-01 11:24 | DIS ---
DATE OF ADMISSION: 06/29/2017 DATE OF DISCHARGE: 06/30/2017 DISCHARGE DISPOSITION: To alf. PRIMARY DISCHARGE DIAGNOSES: Gastrointestinal bleed resolved, history of mantle cell lymphoma, dementia, dyslipidemia. PROCEDURES DONE DURING HOSPITALIZATION: Serial hemoglobin and hematocrit was 11 and 33 and has remained stable. INR 1.0. BUN and creatinine were 23 and 1.5. Ferritin was 1052. Serum iron 27, albumin is 3.6. Stool occult blood was positive done in the ER. DISCHARGE MEDICATIONS: Xanax 0.25 mg p.o. at bedtime, atorvastatin 20 mg p.o. b.i.d., Pepcid 20 mg twice daily, Imdur extended release 30 mg daily, melatonin 3 mg p.o. at bedtime, Risperdal 1 mg p.o. at bedtime, Zoloft 50 mg twice daily, Ultram 50 mg 3 times daily p.r.n. ALLERGIES: No known drug allergies. DISCHARGE PLAN: The patient to follow up with Dr. Atkinson on . [facility] has to arrange transport for him to go see Dr. Atkinson in his office. BRIEF COURSE DURING HOSPITALIZATION: The patient initially got admitted on 07/2017 after sent from [facility] for an episode of rectal bleed. He was closely monitored with serial hemoglobin and hematocrit done. His hemoglobin has remained around 11 grams with no further bleeding. He had one bowel movement in the hospital which was normal per staff. Also his Zyprexa was switched over to Risperdal as family was worried Zyprexa was not working well for him. He has also been having hallucinations and delusions from and has seen a psychiatrist as well. He needs follow up with his psychiatric in 1-2 weeks. Also, patient's family wanted him back on his Xanax at bedtime which is helping him sleep. During his brief stay, patient did not have any psychotic episodes here. He has remained hemodynamically stable. I have given complete updates to his grandson who is also power of business office specialist. A total of 35 minutes was spent on discharge plan. Followup appointment with Dr. Atkinson has been set up on and the alf has to arrange for transport for the same. Please see a [id number] documentation on [facility] for the day of discharge. [facility]
--- NOTE | 2017-08-07 18:58 | EKG ---
Test Reason : Blood Pressure : / mmHG Vent. Rate : 086 BPM Atrial Rate : 086 BPM P-R Int : 148 ms QRS Dur : 090 ms QT Int : 364 ms P-R-T Axes : 054 079 063 degrees QTc Int : 435 ms Normal sinus rhythm Normal ECG Confirmed by RIK PRYOR, ARTEMIO Acuña ([id number]), assignment editor GERMÁN LEDESMA ([id number]) on 08/07/2017 6:58:11 PM Referred By: Confirmed By:ARTEMIO JOLLY MD
== END 2017-06-30 13:53 ==
LOC: ERS 11:33 → ONC 16:48
PROVIDERS: ADMIT Internal Medicine; ATTEND Internal Medicine
DX: K92.2 Gastrointestinal hemorrhage, unspecified (principal); C83.10 Mantle cell lymphoma, unspecified site; F03.90 Unspecified dementia, unspecified severity, without behavioral disturbance, psychotic disturbance, mood disturbance, and anxiety; E78.5 Hyperlipidemia, unspecified; R44.3 Hallucinations, unspecified; F22 Delusional disorders; I25.10 Atherosclerotic heart disease of native coronary artery without angina pectoris; I10 Essential (primary) hypertension; K21.9 Gastro-esophageal reflux disease without esophagitis; Z66 Do not resuscitate; Z79.899 Other long term (current) drug therapy; Z95.1 Presence of aortocoronary bypass graft; Z95.3 Presence of xenogenic heart valve; Z95.828 Presence of other vascular implants and grafts; Z86.19 Personal history of other infectious and parasitic diseases; Z87.891 Personal history of nicotine dependence; Z92.21 Personal history of antineoplastic chemotherapy; Z92.3 Personal history of irradiation
CPT/HCPCS: 80053 ×2; 81003; 82274; 82728; 83540; 83550; 85014 ×2; 85018 ×2; 85025; 85610; 85730; 86850; 86900; 86901; 93005; 96374; 96375; 96376 ×2; 99285; G0378; 36415; C9113; J2405

== ENCOUNTER 2017-07-07 08:40 | Emergency (ER) | payer MEDICARE ==
[2017-07-07 10:00] LABS: #Eosinphils 0.1 thou/uL (0.0-0.7); #Lymphocytes 0.6 thou/uL (1.20-3.40); #Monocytes 0.5 thou/uL (0.11-0.59); #Neutrophils 2.9 thou/uL (1.40-6.50); %Basophils 0.4 % (0.0-1.0); %Eosinophils 2.7 % (0.0-10.0); %Monocytes 11.9 % (0.0-10.0); %Neutrophils 71.1 % (42.0-75.0); Hemoglobin 12.1 g/dL (14.0-18.0); Mean Corpuscular HGB CONC 32.6 g/dL (32.0-36.0); Mean Corpuscular Hemoglobin 30.9 pg (27.0-31.0); Mean Corpuscular Volume 94.8 fl (80.0-94.0); Mean Platelet Volume 7.1 fL (7.4-10.4); Platelet Count 161 thou/uL (130-400); RBC Distribution Width 13.2 % (11.5-14.5); Red Blood Cell (RBC) Count 3.91 mill/uL (4.70-6.10); White Blood Cell (WBC) Count 4.1 thou/uL (4.8-10.8)
[2017-07-07 10:17] LABS: ALT (SGPT) 10 U/L (8-55); AST (SGOT) 19 U/L (5-34); Alkaline Phosphatase 97 U/L (40-150); Anion Gap 15 mmol/L (10-20); BUN (Urea Nitrogen) 18 mg/dL (8.4-25.7); Bilirubin, Total 0.5 mg/dL (0.2-1.2); CK (CPK) 124 U/L (30-200); Calc. Creatinine Clearance 0 mL/min (70-130); Calcium 10.5 mg/dL (7.8-10.44); Carbon Dioxide 20 mmol/L (23-31); Chloride 109 mmol/L (98-107); Estimated GFR-MDRD 53; Globulin 2.4 g/dL (2.4-3.5); Glucose 84 mg/dL (83-110); Lipase 10 U/L (8-78); Potassium 3.9 mmol/L (3.5-5.1); Protein, Total 6.4 g/dL (5.8-8.1); Sodium 140 mmol/L (136-145)
[2017-07-07 10:21] LABS: Troponin I 0.015 ng/mL (< 0.028)
--- NOTE | 2017-07-07 10:24 | CT ---
CT HEAD NONCONTRAST: Date: 07/07/17 INDICATION: Post-traumatic injury, pain. FINDINGS: There is a left frontoparietal scalp hematoma. Redemonstration of jass cisterna magna. There is minim al chronic microvascular ischemic disease without acute intracranial hemorrhage, mass effect, midline shift, or ventriculomegaly. Calvarium is intact, without pneumocephalus. There is mild scattered par anasal sinus mucosal thickening. IMPRESSION: 1. No acute intracranial hemorrhage or mass effect. 2. Left frontoparietal scalp hematoma. POS: [facility]
--- NOTE | 2017-07-07 10:27 | CT ---
CERVICAL SPINE CT NONCONTRAST: Date: 07/07/17 INDICATION: Injury with pain. FINDINGS: There is multilevel degenerative change throughout the cervical spine. There is trace spondylolisthes is of C7 on T1. No compression deformity. Craniocervical junction is intact. IMPRESSION: 1. No acute fracture identified. 2. Multilevel degenerative change present. POS: [facility]
--- NOTE | 2017-07-07 10:29 | RAD ---
CHEST 1 VIEW: Date: 07/07/17 HISTORY: Chest injury. COMPARISON: 05/08/17. FINDINGS: Cardiac silhouette is magnified by projection. Pulmonary vasculature is unremarkable. Mediastinum is midline with postoperative changes and aortic calcification. There is no lobar consolidation or evide nce of pneumothorax. monitor technician leads overlie the chest. IMPRESSION: Atherosclerosis. Chronic-type findings are stable. POS: [facility]
== END 2017-07-07 13:05 | disposition home or self-care (01) ==
LOC: ERS 08:40
DX: S00.03XA Contusion of scalp, initial encounter (principal); C83.10 Mantle cell lymphoma, unspecified site; E78.5 Hyperlipidemia, unspecified; F41.9 Anxiety disorder, unspecified; F32.9 Major depressive disorder, single episode, unspecified; I25.10 Atherosclerotic heart disease of native coronary artery without angina pectoris; K21.9 Gastro-esophageal reflux disease without esophagitis; I10 Essential (primary) hypertension; G30.9 Alzheimer's disease, unspecified; F02.80 Dementia in other diseases classified elsewhere, unspecified severity, without behavioral disturbance, psychotic disturbance, mood disturbance, and anxiety; Z87.891 Personal history of nicotine dependence; W19.XXXA Unspecified fall, initial encounter; Y92.129 Unspecified place in nursing home as the place of occurrence of the external cause
CPT/HCPCS: 36415; 70450; 71045; 72125; 80053; 82274; 82553; 83690; 84484; 85025; 93005